=== PATIENT | female | born 1990 | race Caucasian/White ===

== ENCOUNTER 2016-10-11 17:21 | Emergency (ER) | payer BC ==
[2016-10-11] MEDS ORDERED: Ondansetron INJ* 2 MG/ML VIAL IV ONE (17:43)
[2016-10-11] MEDS ORDERED: Ketorolac INJ* 30 MG/ML 1 ML VIAL IV ONE (17:43)
[2016-10-11] MEDS ORDERED: NS 0.9% 1000 ML* 1,000 ML IV ONE (17:43)
--- NOTE | 2016-10-11 18:15 | RAD ---
INDICATION: RIGHT flank pain with radiation to the RIGHT abdomen. Decreased urine output. Headache. History of urolithiasis with previous instrumentation. COMPARISON: September 14, 2015 RIGHT retrograde pyelogram/stent placement. September 14, 2015 RIGHT renal ultrasound. TECHNIQUE: Multidetector CT images were obtained from the lung bases to the ischial tuberosities. Evaluation of the viscera is limited without IV contrast. Multiplanar reformation. REPORT: Unremarkable visualized inferior thorax. Unremarkable liver. Calcified gallstones without additional CT abnormality of the gallbladder. Negative for biliary dilatation. Unremarkable pancreas. Splenule at the hilum of the normal dominant spleen. Negative for CT abnormality of the upper GI, retrocecal appendix, or colon. Negative for ascites, free air, or significant hernias. Normal adrenal glands. A few punctate 1 -- 2 mm calyceal stones are noted at the mid to lower pole of the RIGHT kidney. Negative for RIGHT ureteral stone or hydroureteronephrosis. Mild RIGHT perinephric inflammatory stranding. The LEFT kidney is remarkable for approximate 51 -- 2 mm calyceal stones. Unremarkable LEFT ureter. Negative for LEFT hydroureteronephrosis or perinephric or periureteral inflammatory stranding. Incompletely distended urinary bladder is unremarkable. Tampon in place in the vagina. Unremarkable uterus and adnexal regions. Negative for lymphadenopathy. Unremarkable dominant retroperitoneal vasculature with physiologic distention of the IVC. Negative for suspicious osseous lesions. IMPRESSION: 1. RIGHT perinephric inflammatory stranding without hydronephrosis. Given presence of multiple nonobstructing 1 -- 2 mm bilateral renal calculi this may reflect recent passage of a RIGHT ureteral stone or nonobstructive RIGHT pyelonephritis. 2. Cholelithiasis.
[2016-10-11 18:22] LABS: Hematocrit 41 % (35-47); Hemoglobin 13.5 g/dl (12.0-16.0); Mean Corpuscular HGB Conc 33 g/dl (31-36); Mean Corpuscular Hemoglobin 30 pg (27-31); Mean Corpuscular Volume 90 fL (80-97); Mean Platelet Volume 9 um3 (7.4-10.4); Red Blood Count 4.55 10^6/ul (4.0-5.4); Red Cell Distribution Width 13 % (10.5-15); White Blood Count 12.3 10^3/ul (3.5-10.8)
[2016-10-11 18:39] LABS: Albumin 3.9 g/dL (3.2-5.2); BUN/Creatinine Ratio 12.7 (8-20); C Reactive Protein 110.84 mg/L (< 5.00); Calcium 9.2 mg/dL (8.6-10.3); EGFR Non-African American 99.5 (>60); Globulin 3.5 g/dL (2-4); Potassium 3.9 mmol/L (3.5-5.0); Total Protein 7.4 g/dL (6.4-8.9)
[2016-10-11] MEDS ORDERED: Morphine INJ* 4 MG/ML 1 ML CARPUJECT IV ONE (18:52)
[2016-10-11 19:23] LABS: Urine Bacteria Absent (Absent); Urine Bilirubin Negative (Negative); Urine Glucose Negative (Negative); Urine Nitrite Negative (Negative)
[2016-10-11 20:48] LABS: Urine Bacteria 1+ (Absent); Urine Bilirubin Negative (Negative); Urine Glucose Negative (Negative); Urine Nitrite Negative (Negative)
--- NOTE | 2016-10-11 21:48 | ED ---
Jesse Lucio Rebecca, scribed for Gurwinder Vogel MD on 10/11/16 at 1749 . Abdominal Pain/Female - HPI Summary HPI Summary: Pt is a 25 y/o F who presents to ED c/o abdominal pain. Pain began suddenly 3 days ago and has been constant since onset. Pain is discrete to the R flank with radiation to the R side of the abd. Pain is characterized as sharp and currently ranked 10/10. Sx aggravated and alleviated by nothing. Additionally c/ o nausea, WOLF, decreased urine output. Current sx similar to a prior episode with a Dx of kidney stones. LNMP is right now. - History of Current Complaint Chief Complaint: EDFlankPain Stated Complaint: POSSIBLE KIDNEY STONE Time Seen by Provider: 10/11/16 17:41 Hx Obtained From: Patient Hx Last Menstrual Period: 10/10/14 Onset/Duration: Sudden Onset, Lasting Days - 3 days ago, Still Present Timing: Constant Severity Initially: Moderate Severity Currently: Severe Pain Intensity: 10 Pain Scale Used: 0-10 Numeric Location: Flank - right Radiates: No Radiates to: Other - Right side of the abdomen Character: Sharp Aggravating Factor(s): Nothing Alleviating Factor(s): Nothing Associated Signs and Symptoms: Positive: Urinary Symptoms - Decreased urine output, Nausea, Other: - Headache Simlar Episode/Dx as:: Previous kidney stone Allergies/Adverse Reactions: Allergies Allergy/AdvReac Type Severity Reaction Status Date / Time No Known Allergies Allergy Verified 10/11/16 17:28 PMH/Surg Hx/FS Hx/Imm Hx Endocrine/Hematology History: Denies: Hx Diabetes, Hx Thyroid Disease Cardiovascular History: Denies: Hx Hypertension Respiratory History: Denies: Hx Asthma, Hx Chronic Obstructive Pulmonary Disease (COPD) GI History: Denies: Hx Ulcer History: Reports: Hx Kidney Infection - kidney stone ablation, Hx Kidney Stones - Surgical History Surgery Procedure, Year, and Place: - January 08 Infectious Disease History: No Infectious Disease History: Denies: Hx Clostridium Difficile, Hx Hepatitis, Hx Human Immunodeficiency Virus (HIV), Hx of Known/Suspected MRSA, Hx Shingles, Hx Tuberculosis, Hx Known/ Suspected VRE, Hx Known/Suspected VRSA, History Other Infectious Disease, Traveled Outside the [place] in Last 30 Days - Family History Known Family History: Positive: Diabetes, Other - Diverticulitis - Social History Alcohol Use: None Substance Use Type: Reports: None Smoking Status (MU): Former Smoker Type: Cigarettes Have You Smoked in the Last Year: No Review of Systems Positive: Abdominal Pain - R flank , Nausea Positive: frequency - Decreased urine frequency Positive: Headache All Other Systems Reviewed And Are Negative: Yes Physical Exam - Summary Physical Exam Summary: VITAL SIGNS: Reviewed. GENERAL: Patient is a well developed and nourished female with acute distress secondary to pain. Patient is not in any acute respiratory distress. HEAD AND FACE: Normocephalic and atraumatic. EYES: PERRLA, EOMI x 2, No injected conjunctiva. EARS: Hearing grossly intact. Ear canals and tympanic membranes are WNL. MOUTH: Oropharynx within normal limits. NECK: Supple, trachea is midline, no adenopathy, no JVD. CHEST: Symmetric, no tenderness at palpation LUNGS: Clear to auscultation bilaterally. No wheezing or crackles. CVS: RRR,, S1 and S2 present, no murmurs or gallops appreciated. ABDOMEN: Soft, non-tender. No signs of distention. Positive bowel sounds. No rebound no guarding, and no masses palpated. No abdominal bruit or pulsations. Positive Right CVAT's EXTREMITIES: FROM in all major joints, no edema, no cyanosis or clubbing. NEURO: Alert and oriented x 3. No acute neurological deficits. Speech is normal. SKIN: Dry and warm Triage Information Reviewed: Yes Vital Signs On Initial Exam: Initial Vitals Temp Pulse Resp BP Pulse Ox 99.3 F 133 20 135/79 100 10/11/16 17:26 10/11/16 17:26 10/11/16 17:26 10/11/16 17:26 10/11/16 17:26 Vital Signs Reviewed: Yes Diagnostics - Vital Signs Vital Signs Temp Pulse Resp BP Pulse Ox 10/11/16 17:26 99.3 F 133 20 135/79 100 - Laboratory Lab Results: Lab Results 10/11/16 10/11/16 10/11/16 Range/Units 18:15 18:15 19:08 WBC 12.3 H (3.5-10.8) 10^3/ul RBC 4.55 (4.0-5.4) 10^6/ul Hgb 13.5 (12.0-16.0) g/dl Hct 41 (35-47) % MCV 90 (80-97) fL MCH 30 (27-31) pg MCHC 33 (31-36) g/dl RDW 13 (10.5-15) % Plt Count 250 (150-450) 10^3/ul MPV 9 (7.4-10.4) um3 Neut % (Auto) 80.6 (38-83) % Lymph % (Auto) 10.3 L (25-47) % [place] % (Auto) 8.6 (1-9) % Eos % (Auto) 0.1 (0-6) % Baso % (Auto) 0.4 (0-2) % Absolute Neuts (auto) 9.9 H (1.5-7.7) 10^3/ul Absolute Lymphs (auto) 1.3 (1.0-4.8) 10^3/ul Absolute Monos (auto) 1.1 H (0-0.8) 10^3/ul Absolute Eos (auto) 0 (0-0.6) 10^3/ul Absolute Basos (auto) 0.1 (0-0.2) 10^3/ul Absolute Nucleated RBC 0 10^3/ul Nucleated RBC % 0 Sodium 132 L (133-145) mmol/L Potassium 3.9 (3.5-5.0) mmol/L Chloride 99 L (101-111) mmol/L Carbon Dioxide 25 (22-32) mmol/L Anion Gap 8 (2-11) mmol/L BUN 9 (6-24) mg/dL Creatinine 0.71 (0.51-0.95) mg/dL Est GFR ( Amer) 128.0 (>60) Est GFR (Non-Af Amer) 99.5 (>60) BUN/Creatinine Ratio 12.7 (8-20) Glucose 90 (70-100) mg/dL Calcium 9.2 (8.6-10.3) mg/dL Total Bilirubin 2.00 H (0.2-1.0) mg/dL AST 13 (13-39) U/L ALT 15 (7-52) U/L Alkaline Phosphatase 58 (34-104) U/L C-Reactive Protein 110.84 H (< 5.00) mg/L Total Protein 7.4 (6.4-8.9) g/dL Albumin 3.9 (3.2-5.2) g/dL Globulin 3.5 (2-4) g/dL Albumin/Globulin Ratio 1.1 (1-3) Lipase 13 (11.0-82.0) U/L Urine Color Yellow Urine Appearance Cloudy Urine pH 6.0 (5-9) Ur Specific [place] 1.016 (1.010-1.030) Urine Protein 1+(30 mg/dl) H (Negative) Urine Ketones 2+ H (Negative) Urine Blood 1+ H (Negative) Urine Nitrate Negative (Negative) Urine Bilirubin Negative (Negative) Urine Urobilinogen Negative (Negative) Ur Leukocyte Esterase 2+ H (Negative) Urine WBC (Auto) 3+(>20/hpf) H (Absent) Urine RBC (Auto) 1+(3-5/hpf) H (Absent) Ur Squamous Epith Cells Present H (Absent) Urine Bacteria Absent (Absent) Urine Glucose Negative (Negative) Result Diagrams: 10/11/16 18:15 10/11/16 18:15 Lab Statement: Any lab studies that have been ordered have been reviewed, and results considered in the medical decision making process. - CT Abd/Pel CT CT Interpretation Completed By: Radiologist - 1. RIGHT perinephric inflammatory stranding without hydronephrosis. Given presence of multiple nonobstructing 1 - - 2 mm bilateral renal calculi this may reflect recent passage of a RIGHT ureteral stone or nonobstructive RIGHT pyelonephritis. 2. Cholelithiasis. Abdominal Pain Fem Course/Dx - Course Course Of Treatment: 25 y/o F presents to ED with a CC of R flank pain. Positive nausea without vomiting. No fever or chills. No dysuria or change in frequency. Test results within normal limits besides WBC of 12.3, urinalysis contaminated. Abd/Pel CT shows multiple 1-2 mm kidney stones w/in the kidney, R hydronephrosis possibly secondary to recently passed kidney stone. In the ED course pt was given IV fluids, Toradol and morphine for pain. After these meds, sx resolved. Pt was in the ED for a couple hours and sx did not return. Therefore pt will be d/c with follow up with PCP. Seeing as pt does not have any fever, dysuria and urinalysis is contaminated I will send for urine culture and if needed, the PCP will place pt on Abx. She was also instructed if she develops any fever, chills or more pain she should return to ED for further evaluation. She is hemodynamically stable and AxOx3. - Diagnoses Provider Diagnoses: Kidney stone, Flank pain Discharge - Discharge Plan Condition: Stable Disposition: HOME Patient Education Materials: Kidney Stones (ED) Referrals: [facility] [place] [facility] [place] [facility] [place]] - 3 Days (Follow up with your primary care physician within the next 3 days ) Additional Instructions: Return to ED if any fever, chills or other pain develop. The documentation as recorded by the Jesse chambers Rebecca accurately reflects the service I personally performed and the decisions made by , Gurwinder Vogel MD.
[2016-10-11 22:00] VITALS: BP 119/73
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
== END 2016-10-11 21:59 | disposition home or self-care (01) ==
LOC: ED 17:21
DX: N20.0 Calculus of kidney (principal); R10.84 Generalized abdominal pain
CPT/HCPCS: 36415; 74176; 80053; 81003; 81015; 83690; 85025; 86140; 87077; 87086; 87186; 96374; 96375; 99282; J1885; J2270; J2405

== ENCOUNTER 2016-10-31 11:54 | Emergency (ER) | payer BC ==
--- NOTE | 2016-10-31 15:33 | RAD ---
INDICATION: Shortness of breath COMPARISON: None TECHNIQUE: PA and lateral views of the chest were obtained. FINDINGS: The heart and mediastinum are normal in size and contour. The lungs are grossly clear. There is no evidence of large pleural effusion. Visualized bones are normal for the patient's age. There is no radiographic evidence of free air beneath the diaphragm IMPRESSION: No radiographic evidence of acute cardiopulmonary disease.
[2016-10-31] MEDS ORDERED: Ketorolac INJ* 30 MG/ML 1 ML VIAL IV ONE (16:32)
[2016-10-31] MEDS ORDERED: LORazepam INJ* 2 MG/ML 1 ML VIAL IV PUSH ONE (16:40)
[2016-10-31] MEDS ORDERED: LORazepam INJ* 2 MG/ML 1 ML VIAL ONE (16:42)
[2016-10-31 16:56] LABS: Hematocrit 36 % (35-47); Hemoglobin 12.2 g/dl (12.0-16.0); Mean Corpuscular HGB Conc 34 g/dl (31-36); Mean Corpuscular Hemoglobin 30 pg (27-31); Mean Corpuscular Volume 89 fL (80-97); Mean Platelet Volume 8 um3 (7.4-10.4); Red Blood Count 4.09 10^6/ul (4.0-5.4); Red Cell Distribution Width 14 % (10.5-15); White Blood Count 7.9 10^3/ul (3.5-10.8)
[2016-10-31 17:03] LABS: Urine Bacteria Absent (Absent); Urine Bilirubin Negative (Negative); Urine Glucose Negative (Negative); Urine Nitrite Negative (Negative)
--- NOTE | 2016-10-31 17:28 | RAD ---
INDICATION: Left rib pain COMPARISON: Chest x-ray October 31, 2016 TECHNIQUE: Multiple views of the ribs were obtained. FINDINGS: Bones: There is no evidence of acute rib fracture. LUNGS: The lungs are clear. There is no pneumothorax. Pleural spaces: There is no evidence of hemothorax. Other: None IMPRESSION: NEGATIVE EXAMINATION.
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
[2016-10-31 18:08] LABS: ALT 36 U/L (7-52); AST 27 U/L (13-39); Albumin 4.1 g/dL (3.2-5.2); Alkaline Phosphatase 51 U/L (34-104); Anion Gap 6 mmol/L (2-11); Blood Urea Nitrogen 9 mg/dL (6-24); C Reactive Protein 1.91 mg/L (< 5.00); CO2 Carbon Dioxide 27 mmol/L (22-32); Calcium 9.5 mg/dL (8.6-10.3); Chloride 106 mmol/L (101-111); EGFR African American 131.3 (>60); EGFR Non-African American 102.1 (>60); Glucose 86 mg/dL (70-100); Lipase 84 U/L (11.0-82.0); Potassium 3.7 mmol/L (3.5-5.0); Sodium 139 mmol/L (133-145); Total Protein 7.1 g/dL (6.4-8.9)
[2016-10-31 19:29] VITALS: BP 118/76
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
== END 2016-10-31 19:25 | disposition home or self-care (01) ==
LOC: ED 11:54
DX: S30.1XXA Contusion of abdominal wall, initial encounter (principal); Y04.2XXA Assault by strike against or bumped into by another person, initial encounter; Y92.9 Unspecified place or not applicable; Z87.891 Personal history of nicotine dependence; Z87.442 Personal history of urinary calculi
CPT/HCPCS: 36415; 71020; 74176; 80053; 81003; 81015; 83690; 83735; 84702; 85025; 85610; 85730; 86140; 87086; 93005; 99284; J1885; J2060

== ENCOUNTER 2016-11-24 15:35 | Emergency (ER) | payer BC | END 2016-11-24 17:12 | disposition left against medical advice (07) | LOC: UCEAST 15:35 | DX: J00 Acute nasopharyngitis [common cold] (principal); Z53.21 Procedure and treatment not carried out due to patient leaving prior to being seen by health care provider ==

== ENCOUNTER 2017-10-12 04:02 | Emergency (ER) | payer BC ==
[2017-10-12] MEDS ORDERED: Metoclopramide IV* 5 MG/ML 2 ML VIAL IV ONE (04:19)
[2017-10-12] MEDS ORDERED: Ketorolac INJ* 30 MG/ML 1 ML VIAL IV ONE (04:19)
[2017-10-12] MEDS ORDERED: HYDROmorphone INJ* 2 MG/ML CARPUJECT SYRINGE IV SLOW PU ONE ×2 (04:19→06:29)
[2017-10-12] MEDS ORDERED: NS 0.9% 1000 ML* 1,000 ML IV ONE ×2 (04:22→05:53)
[2017-10-12 04:57] LABS: ABS Basophils 0 10^3/ul (0-0.2); ABS Eosinophils 0.2 10^3/ul (0-0.6); ABS Lymphocytes 2.4 10^3/ul (1.0-4.8); ABS Monocytes 0.7 10^3/ul (0-0.8); ABS Neutrophils 5.5 10^3/ul (1.5-7.7); ABS Nucleated RBC 0 10^3/ul; Hematocrit 44 % (35-47); Hemoglobin 14.7 g/dl (12.0-16.0); Lymphocyte % 27.2 % (25-47); Mean Corpuscular HGB Conc 34 g/dl (31-36); Mean Corpuscular Hemoglobin 31 pg (27-31); Mean Corpuscular Volume 91 fL (80-97); Mean Platelet Volume 9 um3 (7.4-10.4); Nucleated Red Blood Cells % 0.1; Platelet Count 313 10^3/ul (150-450); Red Blood Count 4.77 10^6/ul (4.0-5.4); Red Cell Distribution Width 14 % (10.5-15); White Blood Count 8.9 10^3/ul (3.5-10.8)
[2017-10-12 05:11] LABS: EGFR Non-African American 105.6 (>60)
[2017-10-12 06:45] LABS: Urine Color Red
[2017-10-12 06:46] LABS: Urine Appearance Turbid
--- NOTE | 2017-10-12 07:02 | ED ---
Regis Lucio Abhishek, scribed for Queenie Douglass MD on 10/12/17 at 0425 . Abdominal Pain/Female - HPI Summary HPI Summary: This patient is a 26 year old F presenting to [facility] with a chief complaint of LLQ abd pain since 1 hour ago. The pain is reported to be radiating to the left kidney (back pain). The patient rates the pain 8/10 in severity. Symptoms aggravated by nothing. Symptoms alleviated by nothing. Patient reports vomiting. Pertinent PMHx includes kidney infection and renal calculi (2 times). - History of Current Complaint Chief Complaint: EDAbdPain Stated Complaint: ABD PAIN/N/V Time Seen by Provider: 10/12/17 04:05 Hx Obtained From: Patient Onset/Duration: Sudden Onset, Lasting Hours - one hour, Still Present Timing: Hours - one hour Severity Initially: Severe Severity Currently: Severe Pain Intensity: 8 Pain Scale Used: 0-10 Numeric Location: Discrete At: LLQ Radiates: Yes Radiates to: Back - left kidney Aggravating Factor(s): Nothing Alleviating Factor(s): Nothing Associated Signs and Symptoms: Positive: Vomiting Allergies/Adverse Reactions: Allergies Allergy/AdvReac Type Severity Reaction Status Date / Time No Known Allergies Allergy Verified 10/31/16 11:57 PMH/Surg Hx/FS Hx/Imm Hx Endocrine/Hematology History: Denies: Hx Diabetes, Hx Thyroid Disease Cardiovascular History: Denies: Hx Hypertension Respiratory History: Denies: Hx Asthma, Hx Chronic Obstructive Pulmonary Disease (COPD) GI History: Denies: Hx Ulcer History: Reports: Hx Kidney Infection - kidney stone ablation, Hx Kidney Stones - Surgical History Surgery Procedure, Year, and Place: - January 08 Infectious Disease History: No Infectious Disease History: Denies: Hx Clostridium Difficile, Hx Hepatitis, Hx Human Immunodeficiency Virus (HIV), Hx of Known/Suspected MRSA, Hx Shingles, Hx Tuberculosis, Hx Known/ Suspected VRE, Hx Known/Suspected VRSA, History Other Infectious Disease, Traveled Outside the [place] in Last 30 Days - Family History Known Family History: Positive: Diabetes, Other - Diverticulitis - Social History Alcohol Use: None Substance Use Type: Reports: None Smoking Status (MU): Former Smoker Type: Cigarettes Have You Smoked in the Last Year: No Review of Systems Constitutional: Negative Eyes: Negative ENT: Negative Cardiovascular: Negative Respiratory: Negative Positive: Abdominal Pain - LLQ, Vomiting Genitourinary: Negative Musculoskeletal: Other - back ("left kidney") pain Skin: Negative Neurological: Negative Psychological: Normal All Other Systems Reviewed And Are Negative: Yes Physical Exam - Summary Physical Exam Summary: VITAL SIGNS: Reviewed. GENERAL: ~Patient is a well-developed and nourished (MALE OR FEMALE) who is lying comfortable in the stretcher. Patient is not in any acute respiratory distress. HEAD AND FACE: No signs of trauma. No ecchymosis, hematomas or skull depressions. No sinus tenderness. EYES: PERRLA, EOMI x 2, No injected conjunctiva, no nystagmus. EARS: Hearing grossly intact. Ear canals and tympanic membranes are within normal limits. MOUTH: Oropharynx within normal limits. NECK: Supple, trachea is midline, no adenopathy, no JVD, no carotid bruit, no c- spine tenderness, neck with full ROM. CHEST: Symmetric, no tenderness at palpation LUNGS: Clear to auscultation bilaterally. No wheezing or crackles. CVS: Regular rate and rhythm, S1 and S2 present, no murmurs or gallops appreciated. ABDOMEN: Left CVA tenderness, EXTREMITIES: Left pelvic tenderness NEURO: Alert and oriented x 3. No acute neurological deficits. Speech is normal and follows commands. SKIN: Dry and warm Triage Information Reviewed: Yes Vital Signs On Initial Exam: Initial Vitals Temp Pulse Resp BP Pulse Ox 97.5 F 77 20 154/93 100 10/12/17 04:05 10/12/17 04:05 10/12/17 04:05 10/12/17 04:05 10/12/17 04:05 Vital Signs Reviewed: Yes Diagnostics - Vital Signs Vital Signs Temp Pulse Resp BP Pulse Ox 10/12/17 04:05 97.5 F 77 20 154/93 100 - Laboratory Result Diagrams: 10/12/17 04:37 10/12/17 04:37 Lab Statement: Any lab studies that have been ordered have been reviewed, and results considered in the medical decision making process. - CT CT A/P CT Interpretation Completed By: Radiologist - CT A/P reveals obstructive uropathy, nephrolithiasis, and choleolithiasis as per radiologist. ED Physician has reviewed this report. Abdominal Pain Fem Course/Dx - Course Course Of Treatment: The pt presented with abd pain discrete to the LLQ and around the "left kidney." Pt also has pertinent PMHx of kidney infection and renal calculi (multiple occurances). The pt will be discharged home. Dx will be renal colic and left urethral stone. We recommended follow up with urologist. - Diagnoses Provider Diagnoses: Left ureteral stone, Renal colic Discharge - Discharge Plan Condition: Stable Disposition: HOME Prescriptions: oxyCODONE/Acetamin 5/325 MG* [Percocet 5/325 TAB*] 1 tab PO Q6H PRN #20 tab MDD 4 PRN Reason: Pain - Moderate To Severe Tamsulosin CAP* [Flomax CAP*] 0.4 mg PO BEDTIME #7 cap Referrals: No Primary Care Phys,NOPCP [Primary Care Provider] - The documentation as recorded by the Regis chambers Abhishek accurately reflects the service I personally performed and the decisions made by Rafat gould Abdul, MD.
[2017-10-12 07:33] VITALS: BP 127/88
--- NOTE | 2017-10-12 08:01 | RAD ---
INDICATION: Left-sided renal colic. COMPARISON: Comparison is made with a prior CT of the abdomen and pelvis from October 29, 2016. TECHNIQUE: A CT scan of the abdomen and pelvis was performed without intravenous or oral contrast. Contiguous axial sections were obtained from the lung bases through the symphysis pubis. Images were reconstructed in the coronal and sagittal planes. FINDINGS: The lung bases are clear. No pleural effusion is present. The liver and spleen are normal in size. The liver is decreased in attenuation consistent with fatty infiltration. There are gallstones present. The gallbladder is not distended. No gallbladder thickening is seen. The pancreas appears to be within normal limits. There is an accessory spleen present. The adrenal glands appear to be within normal limits. There are multiple small bilateral renal calculi measuring between 1 and 2 mm. There is a 3 x 4 mm calculus at the right ureteropelvic junction causing mild hydronephrosis. No bladder calculi are seen. The aorta is normal in caliber without significant calcific plaque. No significant enlarged retroperitoneal lymph nodes are seen. The stomach, small and large bowel appear nondistended. The appendix is within normal limits. There is mild descending and sigmoid diverticulosis without evidence for diverticulitis. The uterus is retroverted and normal in size. There is a small 1.5 cm right ovarian cyst present. No free intraperitoneal air or fluid is seen. No significant focal osseous abnormality is seen. IMPRESSION: 1. MULTIPLE BILATERAL RENAL CALCULI. IN ADDITION THERE IS A 4 MM CALCULUS AT THE LEFT URETEROPELVIC JUNCTION CAUSING MILD HYDRONEPHROSIS. 2. CHOLELITHIASIS. 3. HEPATIC STEATOSIS.
== END 2017-10-12 07:34 | disposition home or self-care (01) ==
LOC: ED 04:02
DX: N20.1 Calculus of ureter (principal); N23 Unspecified renal colic; R10.32 Left lower quadrant pain; R11.10 Vomiting, unspecified; Z87.891 Personal history of nicotine dependence
CPT/HCPCS: 36415; 74176; 80053; 81003; 84702; 85025; 86140; 96374; 96375; 99284; J1170; J1885; J2765

== ENCOUNTER 2017-10-21 18:46 | Emergency (ER) | payer BC ==
[2017-10-21 18:52] VITALS: BP 138/98
[2017-10-21] MEDS ORDERED: HYDROmorphone INJ* 1 MG/ML CARPUJECT SYRINGE IV SLOW PU ONE (20:28)
[2017-10-21] MEDS ORDERED: Metoclopramide IV* 5 MG/ML 2 ML VIAL IV SLOW PU ONE (20:29)
[2017-10-21] MEDS ORDERED: Ketorolac INJ* 30 MG/ML 1 ML VIAL IV PUSH ONE (20:29)
[2017-10-21] MEDS: NS 0.9% 1000 ML* 2,000 ML IV ONE (20:44)
[2017-10-21 21:50] LABS: ABS Basophils 0 10^3/ul (0-0.2); ABS Eosinophils 0.1 10^3/ul (0-0.6); ABS Lymphocytes 1.4 10^3/ul (1.0-4.8); ABS Nucleated RBC 0 10^3/ul; Eosinophil % 0.9 % (0-6); Hematocrit 40 % (35-47); Hemoglobin 13.2 g/dl (12.0-16.0); Lymphocyte % 11.3 % (25-47); Mean Corpuscular HGB Conc 33 g/dl (31-36); Mean Corpuscular Hemoglobin 30 pg (27-31); Mean Corpuscular Volume 91 fL (80-97); Mean Platelet Volume 9 um3 (7.4-10.4); Nucleated Red Blood Cells % 0; Platelet Count 270 10^3/ul (150-450); Red Blood Count 4.36 10^6/ul (4.0-5.4); Red Cell Distribution Width 14 % (10.5-15); White Blood Count 12.6 10^3/ul (3.5-10.8)
[2017-10-21 22:09] LABS: EGFR Non-African American 86.7 (>60); Urine Appearance Cloudy; Urine Blood 3+ (Negative); Urine Color Yellow; Urine Ketones Trace (Negative); Urine Protein Negative (Negative); Urine Specific Gravity 1.016 (1.010-1.030); Urine Urobilinogen Negative (Negative)
[2017-10-21] MEDS ORDERED: Levofloxacin TAB* 500 MG PO ONE (22:38)
--- NOTE | 2017-10-22 06:02 | ED ---
Rigo Lucio Nilda, scribed for Queenie Douglass MD on 10/21/17 at 203 . GI/ HPI - HPI Summary HPI Summary: This patient is a 27 year old F presenting to [facility] with a chief complaint of severe intermittent left flank pain since 183. The patient rates the pain 7/10 in severity. Symptoms aggravated and alleviated by nothing including Percocet taken [facility]. Patient denies vomiting. Two days ago pt was Dx at [facility] with 4mm kidney stone. Pt states she finished Flomax and still experiences pain. She is going to follow up with her urologist. PMHx renal calculi. - History of Current Complaint Chief Complaint: EDFlankPain Time Seen by Provider: 10/21/17 20:19 Stated Complaint: LOWER FLANK PAIN Hx Obtained From: Patient Hx Last Menstrual Period: 10/10/14 Onset/Duration: Started Hours Ago, Still Present Timing: Intermittent Severity: Severe Current Severity: Severe Pain Intensity: 7 Location of Pain: Flank Associated Signs and Symptoms: Positive: Other: - denies vomitting Aggravating Factor(s): Nothing Alleviating Factor(s): Nothing - Allergy/Home Medications Allergies/Adverse Reactions: Allergies Allergy/AdvReac Type Severity Reaction Status Date / Time No Known Allergies Allergy Verified 10/31/16 11:57 PMH/Surg Hx/FS Hx/Imm Hx Endocrine/Hematology History: Denies: Hx Diabetes, Hx Thyroid Disease Cardiovascular History: Denies: Hx Hypertension Respiratory History: Denies: Hx Asthma, Hx Chronic Obstructive Pulmonary Disease (COPD) GI History: Denies: Hx Ulcer History: Reports: Hx Kidney Infection - kidney stone ablation, Hx Kidney Stones - Surgical History Surgery Procedure, Year, and Place: - January 08 Infectious Disease History: No Infectious Disease History: Denies: Hx Clostridium Difficile, Hx Hepatitis, Hx Human Immunodeficiency Virus (HIV), Hx of Known/Suspected MRSA, Hx Shingles, Hx Tuberculosis, Hx Known/ Suspected VRE, Hx Known/Suspected VRSA, History Other Infectious Disease, Traveled Outside the [place] in Last 30 Days - Family History Known Family History: Positive: Diabetes, Other - Diverticulitis - Social History Occupation: Employed Full-time Alcohol Use: None Substance Use Type: Reports: None Smoking Status (MU): Former Smoker Type: Cigarettes Have You Smoked in the Last Year: No Review of Systems Negative: Vomiting Positive: flank pain - left All Other Systems Reviewed And Are Negative: Yes Physical Exam - Summary Physical Exam Summary: VITAL SIGNS: Reviewed. GENERAL: Patient is a well-developed and nourished female who is in pain distress. Patient is not in any acute respiratory distress. HEAD AND FACE: No signs of trauma. No ecchymosis, hematomas or skull depressions. No sinus tenderness. EYES: PERRLA, EOMI x 2, No injected conjunctiva, no nystagmus. EARS: Hearing grossly intact. Ear canals and tympanic membranes are within normal limits. MOUTH: Oropharynx within normal limits. NECK: Supple, trachea is midline, no adenopathy, no JVD, no carotid bruit, no c- spine tenderness, neck with full ROM. CHEST: Symmetric, no tenderness at palpation LUNGS: Clear to auscultation bilaterally. No wheezing or crackles. CVS: Regular rate and rhythm, S1 and S2 present, no murmurs or gallops appreciated. ABDOMEN: Soft, LLQ tender. No signs of distention. No rebound no guarding, and no masses palpated. Bowel sounds are normal. BACK: Left CVA tenderness EXTREMITIES: FROM in all major joints, no edema, no cyanosis or clubbing. NEURO: Alert and oriented x 3. No acute neurological deficits. Speech is normal and follows commands. SKIN: Dry and warm Triage Information Reviewed: Yes Vital Signs On Initial Exam: Initial Vitals Temp Pulse Resp BP Pulse Ox 97.9 F 87 20 138/98 97 10/21/17 18:49 10/21/17 18:49 10/21/17 18:49 10/21/17 18:49 10/21/17 18:49 Vital Signs Reviewed: Yes Diagnostics - Vital Signs Vital Signs Temp Pulse Resp BP Pulse Ox 10/21/17 18:49 97.9 F 87 20 138/98 97 - Laboratory Result Diagrams: 10/21/17 21:40 10/21/17 21:40 Lab Statement: Any lab studies that have been ordered have been reviewed, and results considered in the medical decision making process. GIGU Course/Dx - Course Assessment/Plan: Pt is a 27 y/o F presenting to [facility] c/o of left flank pain. Previously diagnosed with 3-4 mm stone in left ureter pelvic junction and has been having CV pain since 1830 today. PMHx renal calculi. Pt taking Percocet at home which has not been helping pain. Pt given Dilaudid in ED with relief. Pt will be D/C with Dilaudid and follow up with Urology tomorrow. Pt UA may be showing possible UTI. Pt will be given Levaquin. Dx Renal Colic. - Diagnoses Provider Diagnoses: Renal colic Discharge - Discharge Plan Condition: Stable Disposition: HOME Prescriptions: HYDROmorphone TAB* [Dilaudid TAB*] 4 mg PO Q6H PRN #20 tab MDD 8 PRN Reason: Pain Levofloxacin TAB* [Levaquin TAB*] 500 mg PO DAILY #7 tab Patient Education Materials: Renal Colic (ED) Referrals: Jose Baugh MD [Medical Doctor] - 1 Day Additional Instructions: RETURN TO THE EMERGENCY DEPARTMENT FOR CHANGING OR WORSENING SYMPTOMS. The documentation as recorded by the Rigo chambers Nilda accurately reflects the service I personally performed and the decisions made by , Qeuenie Douglass MD.
== END 2017-10-21 23:01 | disposition home or self-care (01) ==
LOC: ED 18:46
DX: N23 Unspecified renal colic (principal); N20.0 Calculus of kidney; R10.84 Generalized abdominal pain; Z87.891 Personal history of nicotine dependence
CPT/HCPCS: 36415; 80053; 81003; 81015; 84702; 85025; 86140; 87086; 96374; 96375; 99283; J1170; J1885; J2765

== ENCOUNTER 2017-11-03 14:16 | Emergency (ER) | payer BC ==
[2017-11-03] MEDS ORDERED: Ketorolac INJ* 30 MG/ML 1 ML VIAL IV PUSH ONE ×2 (14:34→19:52)
[2017-11-03] MEDS ORDERED: Ondansetron INJ* 2 MG/ML VIAL IV ONE (14:34)
[2017-11-03] MEDS ORDERED: Morphine INJ* 4 MG/ML 1 ML CARPUJECT IV ONE ×3 (14:34→16:00)
[2017-11-03] MEDS ORDERED: NS 0.9% 1000 ML* 1,000 ML IV ONE (14:34)
[2017-11-03] MEDS ORDERED: Ondansetron INJ* 2 MG/ML VIAL ONE (14:36)
[2017-11-03] MEDS ORDERED: Ketorolac INJ* 30 MG/ML 1 ML VIAL ONE (14:36)
[2017-11-03 14:55] LABS: ABS Basophils 0 10^3/ul (0-0.2); ABS Eosinophils 0.1 10^3/ul (0-0.6); ABS Lymphocytes 1.5 10^3/ul (1.0-4.8); ABS Monocytes 0.6 10^3/ul (0-0.8); ABS Neutrophils 6.9 10^3/ul (1.5-7.7); ABS Nucleated RBC 0 10^3/ul; Hematocrit 41 % (35-47); Hemoglobin 13.6 g/dl (12.0-16.0); Lymphocyte % 16.1 % (25-47); Mean Corpuscular HGB Conc 34 g/dl (31-36); Mean Corpuscular Hemoglobin 31 pg (27-31); Mean Corpuscular Volume 91 fL (80-97); Mean Platelet Volume 9 um3 (7.4-10.4); Nucleated Red Blood Cells % 0; Platelet Count 302 10^3/ul (150-450); Red Blood Count 4.47 10^6/ul (4.0-5.4); Red Cell Distribution Width 13 % (10.5-15); White Blood Count 9.1 10^3/ul (3.5-10.8)
--- NOTE | 2017-11-03 15:00 | RAD ---
INDICATION: Pelvic pain. History of nephrolithiasis. COMPARISON: CT October 12, 2017 TECHNIQUE: A single view of the abdomen is submitted. FINDINGS: Bones: There are no acute bony findings. Soft tissues: The soft tissues appear normal. The psoas margins are sharp. Bowel gas pattern: Normal Calcifications: There are no abnormal calcifications. Other: None IMPRESSION: NO PLAIN RADIOGRAPHIC EVIDENCE OF RENAL CALCULI
[2017-11-03 15:09] LABS: EGFR Non-African American 84.2 (>60)
--- NOTE | 2017-11-03 15:42 | RAD ---
INDICATION: Left flank pain. COMPARISON: CT October 12, 2017 TECHNIQUE: Longitudinal and transverse scans of the kidneys were obtained. FINDINGS: Left kidney: The left kidney measures 12.8 x 6.5 x 6.4 cm. There is mild left-sided hydronephrosis. There is a probable midpole calculus measuring 3 to 4 mm. This is documented on earlier CT imaging. The left ureter cannot be traced. At the bladder the left ureteral jet is not documented. IMPRESSION: MILD LEFT-SIDED HYDRONEPHROSIS. LEFT-SIDED NEPHROLITHIASIS. NONVISUALIZATION LEFT URETERAL JET.
--- NOTE | 2017-11-03 16:46 | RAD ---
INDICATION: Left flank pain with hydronephrosis and absent left ureteral jet. Recent CT shows bilateral nephrolithiasis COMPARISON: Renal sonogram same date; CT October 12, 2017 TECHNIQUE: Noncontrast axial source images were acquired from the level hemidiaphragms to the symphysis pubis as part of CT imaging for renal stone. Lung bases: The lung bases are clear. Liver: The liver is enlarged with findings of hepatic steatosis. Noncontrast imaging shows no evidence of a hepatic mass or ductal dilatation. Gallbladder: Cholelithiasis, unchanged. Spleen: The spleen is normal in size. The noncontrast CT appearance is normal. There is a small splenule Pancreas: Noncontrast imaging shows no pancreatic mass or ductal dilitation. Adrenal glands: No masses are identified. Kidneys/Bladder: There is again evidence of bilateral nephrolithiasis. There is moderate left-sided obstruction consistent with the concurrent ultrasound with left-sided hydronephrosis and hydroureter with a 5 mm calculus at the left UVJ. Adenopathy: There is no evidence of intraperitoneal or retroperitoneal adenopathy. Evaluation is limited without oral contrast. Fluid collections: There are no free or localized fluid collections. Vessels: The aorta and iliac vessels are normal in caliber. There are no significant atherosclerotic changes. The IVC appears normal Pelvic organs: The uterus and adnexa appear normal GI tract: Evaluation of the bowel is limited without oral contrast. The stomach, small bowel, and lower GI tract appear grossly normal. There are no obstructive findings. The appendix is visualized and appears normal. Soft tissues: No soft tissue abnormalities of the extraperitoneal abdomen or pelvis are identified. Osseous structures: There are no acute osseous findings. IMPRESSION: 1. Hepatomegaly with hepatic steatosis. 2. Cholelithiasis, unchanged. 3. Bilateral nephrolithiasis. There is a 5 mm axis at the left UVJ producing moderate obstructive findings.
[2017-11-03 18:09] LABS: Urine Appearance Cloudy; Urine Blood 3+ (Negative); Urine Color Yellow; Urine Ketones Negative (Negative); Urine Protein Negative (Negative); Urine Specific Gravity 1.008 (1.010-1.030); Urine Urobilinogen Negative (Negative)
[2017-11-03 18:58] LABS: Urine Appearance Clear; Urine Blood 3+ (Negative); Urine Color Straw; Urine Ketones Trace (Negative); Urine Protein Negative (Negative); Urine Urobilinogen Negative (Negative)
[2017-11-03] MEDS ORDERED: oxyCODONE/Acetamin 5/325 MG* TAB PO ONE ×2 (19:52→21:12)
[2017-11-03] MEDS ORDERED: Tamsulosin CAP* 0.4 MG PO ONE (19:52)
[2017-11-03 20:31] VITALS: BP 136/82
[2017-11-03] MEDS ORDERED: I buprofen 600 MG #6 TAB PREPK 600 MG TAB PO ONE (20:37)
[2017-11-03] MEDS ORDERED: C ephalexin 500MG #6 TAB PREPK 500 MG CAP PO ONE (20:37)
--- NOTE | 2017-11-10 14:19 | ED ---
[facility] Luc[facility] Stephanie, scribed for Umer Mike MD on 11/03/17 at 1731 . Progress - Consult/PCP Time Called: 18:24 - Requested a straight catheter for pt. Consult/PCP: Dr. Baugh Re-Evaluation - Re-Evaluation First Eval Re-Evaluation Time: 17:36 Change: Improved - The pt is able to urinate bloody urine with debris. Her back pain is gone. The pt reports that she still has urethral pain. Second Eval Re-Evaluation Time: 20:38 Change: Improved - Patient's painis resolved. She wishes to be discharged. Course/Dx - Course Course Of Treatment: Pt has minimal hydro nephrosis. She is able to urinate. Pain is controlled. No sign of infection. The pt will be discharged home. Follow up with Dr. Baugh in 2-3 days. - Diagnoses Provider Diagnoses: Ureteral stone The documentation as recorded by the [facility] accurately reflects the service I personally performed and the decisions made by , Umer Mike MD.
--- NOTE | 2017-11-10 14:19 | ED ---
Deepthi Lucio Emily, scribed for Umer Mike MD on 11/03/17 at 1434 . Abdominal Pain/Female - HPI Summary HPI Summary: This patient is a 27 year old F presenting to [facility] with a chief complaint of pain in the urethra that began 2 weeks ago that worsened yesterday. The patient rates the pain 10/10 in severity. Symptoms aggravated by nothing. Symptoms alleviated by nothing. Patient reports hematuria, diaphoresis, feeling like she constantly needs to pee, inability to urinate since 829, dark urine, and L sided back pain. Pt reports trying to make an appointment with Dr. Baugh, and was unable to make an appointment. Pt reports a history of kidney stones. - History of Current Complaint Chief Complaint: EDAbdPain Stated Complaint: ABD PAIN/BLOODY URINE Hx Obtained From: Patient Hx Last Menstrual Period: 10/10/14 Onset/Duration: Sudden Onset, Lasting Weeks, Worse Since - Yesterday Timing: Weeks Severity Initially: Severe Severity Currently: Severe Pain Intensity: 10 Pain Scale Used: 0-10 Numeric Location: Suprapubic Radiates: Yes Radiates to: Back Aggravating Factor(s): Nothing Alleviating Factor(s): Nothing Associated Signs and Symptoms: Positive: Other: - Positive hematuria, diaphoresis, feeling like she constantly needs to pee, inability to pee since 829, dark urine, and L sided back pain Allergies/Adverse Reactions: Allergies Allergy/AdvReac Type Severity Reaction Status Date / Time No Known Allergies Allergy Verified 11/08/17 20:23 PMH/Surg Hx/FS Hx/Imm Hx Previously Healthy: No Endocrine/Hematology History: Denies: Hx Diabetes, Hx Thyroid Disease Cardiovascular History: Denies: Hx Hypertension Respiratory History: Denies: Hx Asthma, Hx Chronic Obstructive Pulmonary Disease (COPD) GI History: Denies: Hx Ulcer History: Reports: Hx Kidney Infection - kidney stone ablation, Hx Kidney Stones - Surgical History Surgery Procedure, Year, and Place: - January 08 Infectious Disease History: No Infectious Disease History: Denies: Hx Clostridium Difficile, Hx Hepatitis, Hx Human Immunodeficiency Virus (HIV), Hx of Known/Suspected MRSA, Hx Shingles, Hx Tuberculosis, Hx Known/ Suspected VRE, Hx Known/Suspected VRSA, History Other Infectious Disease, Traveled Outside the [place] in Last 30 Days - Family History Known Family History: Positive: Diabetes, Other - Diverticulitis - Social History Occupation: Employed Full-time Lives: With Family Alcohol Use: None Substance Use Type: Reports: None Smoking Status (MU): Former Smoker Type: Cigarettes Have You Smoked in the Last Year: No Review of Systems Positive: Skin Diaphoresis. Negative: Fever, Chills Negative: Erythema Negative: Sore Throat Negative: Chest Pain Negative: Shortness Of Breath, Cough Positive: Abdominal Pain. Negative: Vomiting, Nausea Positive: other - Positive dark urine, "feelings of increased frequency", and inability to urinate. Positive: Other - Positive L sided back pain. Negative: Edema Negative: Rash Neurological: Other - Negative dizziness All Other Systems Reviewed And Are Negative: Yes Physical Exam - Summary Physical Exam Summary: Constitutional: Well-developed, Well-nourished, Alert. Appears to be in pain/ distress Skin: Warm, Dry HENT: Normocephalic; Atraumatic Eyes: Conjunctiva normal Neck: Musculoskeletal ROM normal neck. (-) JVD, (-) Stridor, (-) Tracheal deviation Cardio: Rhythm regular, rate normal, Heart sounds normal; Intact distal pulses; The pedal pulses are 2+ and symmetric. Radial pulses are 2+ and symmetric. (-) Murmur Pulmonary/Chest wall: Effort normal. (-) Respiratory distress, (-) Wheezes, (-) Rales Abd: Soft, (-) Distension, (-) Guarding, (-) Rebound, mild CVA tenderness Pelvic Exam: Female RN present; external genitalia present Musculoskeletal: (-) Edema Lymph: (-) Cervical adenopathy Neuro: Alert, Oriented x3 Psych: Mood and affect Normal Triage Information Reviewed: Yes Vital Signs On Initial Exam: Initial Vitals Temp Pulse Resp BP Pulse Ox 97.2 F 85 24 153/78 99 11/03/17 14:18 11/03/17 14:18 11/03/17 14:18 11/03/17 14:18 11/03/17 14:18 Vital Signs Reviewed: Yes Diagnostics - Vital Signs Vital Signs Temp Pulse Resp BP Pulse Ox 11/03/17 14:18 97.2 F 85 24 153/78 99 - Laboratory Lab Results: Lab Results 11/03/17 11/03/17 11/03/17 Range/Units 14:42 14:42 14:42 WBC 9.1 (3.5-10.8) 10^3/ul RBC 4.47 (4.0-5.4) 10^6/ul Hgb 13.6 (12.0-16.0) g/dl Hct 41 (35-47) % MCV 91 (80-97) fL MCH 31 (27-31) pg MCHC 34 (31-36) g/dl RDW 13 (10.5-15) % Plt Count 302 (150-450) 10^3/ul MPV 9 (7.4-10.4) um3 Neut % (Auto) 76.5 (38-83) % Lymph % (Auto) 16.1 L (25-47) % [place] % (Auto) 6.1 (1-9) % Eos % (Auto) 1.0 (0-6) % Baso % (Auto) 0.3 (0-2) % Absolute Neuts (auto) 6.9 (1.5-7.7) 10^3/ul Absolute Lymphs (auto) 1.5 (1.0-4.8) 10^3/ul Absolute Monos (auto) 0.6 (0-0.8) 10^3/ul Absolute Eos (auto) 0.1 (0-0.6) 10^3/ul Absolute Basos (auto) 0 (0-0.2) 10^3/ul Absolute Nucleated RBC 0 10^3/ul Nucleated RBC % 0 Sodium 136 (133-145) mmol/L Potassium 4.1 (3.5-5.0) mmol/L Chloride 104 (101-111) mmol/L Carbon Dioxide 25 (22-32) mmol/L Anion Gap 7 (2-11) mmol/L BUN 10 (6-24) mg/dL Creatinine 0.81 (0.51-0.95) mg/dL Est GFR ( Amer) 108.3 (>60) Est GFR (Non-Af Amer) 84.2 (>60) BUN/Creatinine Ratio 12.3 (8-20) Glucose 100 (70-100) mg/dL Lactic Acid 0.8 (0.5-2.0) mmol/L Calcium 9.6 (8.6-10.3) mg/dL Total Bilirubin 1.00 (0.2-1.0) mg/dL AST 24 (13-39) U/L ALT 42 (7-52) U/L Alkaline Phosphatase 52 (34-104) U/L C-Reactive Protein 3.40 (< 5.00) mg/L Total Protein 7.4 (6.4-8.9) g/dL Albumin 4.3 (3.2-5.2) g/dL Globulin 3.1 (2-4) g/dL Albumin/Globulin Ratio 1.4 (1-3) Lipase 19 (11.0-82.0) U/L Urine Color Urine Appearance Urine pH (5-9) Ur Specific [place] (1.010-1.030) Urine Protein (Negative) Urine Ketones (Negative) Urine Blood (Negative) Urine Nitrate (Negative) Urine Bilirubin (Negative) Urine Urobilinogen (Negative) Ur Leukocyte Esterase (Negative) Urine WBC (Auto) (Absent) Urine RBC (Auto) (Absent) Ur Squamous Epith Cells (Absent) Urine Bacteria (Absent) Urine Glucose (Negative) 11/03/17 11/03/17 Range/Units 17:50 18:47 WBC (3.5-10.8) 10^3/ul RBC (4.0-5.4) 10^6/ul Hgb (12.0-16.0) g/dl Hct (35-47) % MCV (80-97) fL MCH (27-31) pg MCHC (31-36) g/dl RDW (10.5-15) % Plt Count (150-450) 10^3/ul MPV (7.4-10.4) um3 Neut % (Auto) (38-83) % Lymph % (Auto) (25-47) % [place] % (Auto) (1-9) % Eos % (Auto) (0-6) % Baso % (Auto) (0-2) % Absolute Neuts (auto) (1.5-7.7) 10^3/ul Absolute Lymphs (auto) (1.0-4.8) 10^3/ul Absolute Monos (auto) (0-0.8) 10^3/ul Absolute Eos (auto) (0-0.6) 10^3/ul Absolute Basos (auto) (0-0.2) 10^3/ul Absolute Nucleated RBC 10^3/ul Nucleated RBC % Sodium (133-145) mmol/L Potassium (3.5-5.0) mmol/L Chloride (101-111) mmol/L Carbon Dioxide (22-32) mmol/L Anion Gap (2-11) mmol/L BUN (6-24) mg/dL Creatinine (0.51-0.95) mg/dL Est GFR ( Amer) (>60) Est GFR (Non-Af Amer) (>60) BUN/Creatinine Ratio (8-20) Glucose (70-100) mg/dL Lactic Acid (0.5-2.0) mmol/L Calcium (8.6-10.3) mg/dL Total Bilirubin (0.2-1.0) mg/dL AST (13-39) U/L ALT (7-52) U/L Alkaline Phosphatase (34-104) U/L C-Reactive Protein (< 5.00) mg/L Total Protein (6.4-8.9) g/dL Albumin (3.2-5.2) g/dL Globulin (2-4) g/dL Albumin/Globulin Ratio (1-3) Lipase (11.0-82.0) U/L Urine Color Yellow Straw Urine Appearance Cloudy Clear Urine pH 6.0 6.0 (5-9) Ur Specific [place] 1.008 L 1.010 (1.010-1.030) Urine Protein Negative Negative (Negative) Urine Ketones Negative Trace H (Negative) Urine Blood 3+ H 3+ H (Negative) Urine Nitrate Negative Negative (Negative) Urine Bilirubin Negative Negative (Negative) Urine Urobilinogen Negative Negative (Negative) Ur Leukocyte Esterase Trace H Negative (Negative) Urine WBC (Auto) 3+(>20/hpf) H Absent (Absent) Urine RBC (Auto) Trace(0-2/hpf) 3+(>10/hpf) H (Absent) Ur Squamous Epith Cells Present H Present H (Absent) Urine Bacteria Absent Absent (Absent) Urine Glucose Negative Negative (Negative) Result Diagrams: 11/03/17 14:42 11/03/17 14:42 Lab Statement: Any lab studies that have been ordered have been reviewed, and results considered in the medical decision making process. - Radiology Abdomen XR Radiology Interpretation Completed By: Radiologist - Abdomen XR reveals, per radiologist, no plain radiographic evidence of renal calculi. ED physician has reviewed this radiology report. - CT Abdomen/Pelvis CT CT Interpretation Completed By: Radiologist - Abdomen/pelvis CT reveals, per radiologist, 1. Hepatomegaly with hepatic steatosis. 2. Cholelithiasis, unchanged. 3. Bilateral nephrolithiasis. There is a 5 mm axis at the left UVJ producing moderate obstructive findings. ED physician has reviewed this radiology report. - Additional Comments Diagnostic Additional Comments: Renal US reveals, per radiologist, mild left-sided hydronephrosis. Left-sided nephrolithiasis. Nonvisualization left ureteral jet. ED physician has reviewed this radiology report. Abdominal Pain Fem Course/Dx - Course Course Of Treatment: Signoff to Malia Monet upon scribe shift change pending labs, disposition, and diagnosis. - Diagnoses Provider Diagnoses: Ureteral stone Discharge - Discharge Plan Condition: Stable Disposition: OTHER Discharge Disposition Comment: Signoff to Malia Monet upon scribe shift change Patient Education Materials: Ureteral Stones (ED) Referrals: No Primary Care Phys,NOPCP [Primary Care Provider] - Jose Baugh MD [Medical Doctor] - 3 Days The documentation as recorded by the Deepthi chambers Emily accurately reflects the service I personally performed and the decisions made by , Umer Mike MD.
== END 2017-11-03 21:26 ==
LOC: ED 14:16
DX: N20.1 Calculus of ureter (principal); Z87.442 Personal history of urinary calculi; N13.30 Unspecified hydronephrosis
CPT/HCPCS: 36415; 74018; 74176; 76775; 80053; 81003; 81015; 83605; 83690; 85025; 86140; 87086; 96360; 96374; 96375; 96376; 99283; A9270-GY; J1885; J2270; J2405

== ENCOUNTER 2017-11-08 16:41 | Observation (INO) | payer BC ==
[2017-11-08] MEDS ORDERED: NS 0.9% 1000 ML* 1,000 ML IV ONE (17:57)
[2017-11-08] MEDS ORDERED: Ketorolac INJ* 30 MG/ML 1 ML VIAL IV PUSH ONE (17:57)
[2017-11-08] MEDS ORDERED: Ketorolac INJ* 30 MG/ML 1 ML VIAL ONE (17:58)
[2017-11-08 18:44] LABS: ABS Basophils 0 10^3/ul (0-0.2); ABS Eosinophils 0.1 10^3/ul (0-0.6); ABS Lymphocytes 0.8 10^3/ul (1.0-4.8); ABS Monocytes 0.5 10^3/ul (0-0.8); ABS Neutrophils 3.5 10^3/ul (1.5-7.7); ABS Nucleated RBC 0 10^3/ul; Eosinophil % 1.7 % (0-6); Hematocrit 21 % (35-47); Hemoglobin 7.2 g/dl (12.0-16.0); Mean Corpuscular HGB Conc 34 g/dl (31-36); Mean Corpuscular Hemoglobin 31 pg (27-31); Mean Corpuscular Volume 92 fL (80-97); Mean Platelet Volume 9 um3 (7.4-10.4); Nucleated Red Blood Cells % 0; Platelet Count 137 10^3/ul (150-450); Red Blood Count 2.31 10^6/ul (4.0-5.4); Red Cell Distribution Width 13 % (10.5-15)
[2017-11-08 19:39] LABS: ABS Basophils 0.1 10^3/ul (0-0.2); ABS Eosinophils 0.2 10^3/ul (0-0.6); ABS Lymphocytes 1.7 10^3/ul (1.0-4.8); ABS Monocytes 0.9 10^3/ul (0-0.8); ABS Neutrophils 7.4 10^3/ul (1.5-7.7); ABS Nucleated RBC 0 10^3/ul; Eosinophil % 1.7 % (0-6); Hematocrit 39 % (35-47); Hemoglobin 13.5 g/dl (12.0-16.0); Lymphocyte % 16.7 % (25-47); Mean Corpuscular HGB Conc 34 g/dl (31-36); Mean Corpuscular Hemoglobin 31 pg (27-31); Mean Corpuscular Volume 90 fL (80-97); Mean Platelet Volume 9 um3 (7.4-10.4); Nucleated Red Blood Cells % 0; Platelet Count 267 10^3/ul (150-450); Red Blood Count 4.39 10^6/ul (4.0-5.4); Red Cell Distribution Width 13 % (10.5-15); White Blood Count 10.2 10^3/ul (3.5-10.8)
--- NOTE | 2017-11-08 19:40 | RAD ---
INDICATION: Urethral pain, known ureteral calculus. COMPARISON: Comparison is made with a prior CT of the abdomen and pelvis from November 03, 2017 and a renal ultrasound also from November 03, 2017. TECHNIQUE: Multiple real-time images of the kidneys and urinary bladder were obtained. FINDINGS: The kidneys are normal in size shape and echogenicity. The right kidney measured 11.6 x 5.8 x 6.6 cm and the left kidney measured 12.9 x 7.4 x 5.9 cm. There are small echogenic foci in the mid portions of both kidneys measuring 4 mm each most consistent with renal calculi. There is moderate left hydronephrosis which appears unchanged. The bladder is normal in contour. No intraluminal abnormalities are seen. No bladder wall thickening is noted. There is a normal right ureteral jet. There is no left ureteral jet. The prevoid volume was 242 ml and a post void residual was 8 ml. IMPRESSION: 1. THERE IS MODERATE LEFT HYDRONEPHROSIS WHICH IS UNCHANGED AND NO LEFT URETERAL JET CONSISTENT WITH PERSISTENT OBSTRUCTION OF THE LEFT URETER NOTED ON THE PRIOR CT STUDY. 2. SMALL BILATERAL RENAL CALCULI.
[2017-11-08 19:54] LABS: Urine Appearance Clear; Urine Blood 2+ (Negative); Urine Color Straw; Urine Ketones Negative (Negative); Urine Protein Negative (Negative); Urine Specific Gravity 1.009 (1.010-1.030); Urine Urobilinogen Negative (Negative)
[2017-11-08] MEDS ORDERED: Ciprofloxacin 400MG IVPREMIX(* 400 MG/200 ML BAG IVPB ONE (20:10)
[2017-11-08] MEDS ORDERED: Morphine INJ* 4 MG/ML 1 ML CARPUJECT IV ONE (20:10)
[2017-11-08] MEDS ORDERED: Ondansetron INJ* 2 MG/ML VIAL IV ONE (20:11)
[2017-11-08 20:24] LABS: EGFR Non-African American 71.8 (>60)
[2017-11-08] MEDS ORDERED: Ondansetron INJ* 2 MG/ML VIAL IV PRN (21:30)
[2017-11-08] MEDS ORDERED: Albuterol 2.5 MG/3 ML NEB.SOL* (0.083%) INH PRN (21:30)
[2017-11-08] MEDS ORDERED: CMCS: Melatonin (NF) 3 MG TAB PO PRN (21:30)
[2017-11-08] MEDS: HYDROmorphone INJ* 2 MG/ML CARPUJECT SYRINGE IV PRN (23:17)
[2017-11-08] MEDS: NS 0.9% 1000 ML* 1,000 ML IV SCH (23:17)
--- NOTE | 2017-11-08 23:39 | HP ---
H&P (Free Text) History and Physical: PCP: none Urology: Lula Brantley MD Date/Time: 11/08/20172119 CC: L flank pain HPI: Ms Horton is a 27YO obese white female HX urolithiasis & anxiety who reports onset of intermittent L flank pain 1 month ago which has waxed and waned , gradually migrating around to the LLQ and now into the groin/vaginal area. She reports nausea without emesis, denies F/C, sweats, or other issues. US reveals moderate L hydronephrosis and absence of a L ureteral jet. Plan is to observe for pain control and evaluation in the AM via Lula Brantley MD urology. Of note she was seen in ED 10/12, 10/21, 10/24, & now 11/08/2017 for this L flank pain, but did not follow up with urology outpatient as advised. 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 [employer]; full code status FamHx: Mother: alive at 57 w/ HX diverticulitis; Father: alive at 60 w/ HTN & DM2 ROS: as above, otherwise reviewed and all were negative vitals: Vital Signs Temp 36.7 C 11/09/17 00:04 Pulse 78 11/09/17 00:04 Resp 18 11/09/17 00:38 BP 112/52 11/09/17 00:04 Pulse Ox 97 11/09/17 00:04 Intake & Output 11/08/17 11/08/17 11/09/17 11:59 23:59 11:59 Intake Total 1200 Output Total 50 Balance 1150 Weight 97.522 kg Intake: IV Fluids 1200 Output: Urine 50 Constitutional: NAD, normally developed, well-nourished obese white female HEENM: atraumatic; sclera/conjunctiva: anicteric/clear; hearing: clinically intact; oropharynx: clear, mucosa tacky Neck: soft tissue: non-tender; thyroid: normal Pulmonary: clear to auscultation bilaterally, good aeration, no accessory muscle use CV: RR/RR, normal S1S2, no carotid bruit, no jugular venous distention, 2+ B DP/ PT, no edema Abdominal: soft, non-distended, mildly tender LLQ, no rebound/guarding/rigidity , normoactive bowel sounds, no hepatosplenomegaly or masses, no costovertebral angle tenderness Musculoskeletal: general: grossly intact; gait: stable Integumental: normal appearance and texture of exposed skin Psychiatric orientation: AA&O to PPS affect: calm mood: cooperative eye contact: good content: reliable responses: timely insight: fair Testing: Lab Results 11/08/17 11/08/17 11/08/17 Range/Units 18:29 18:29 18:29 WBC 5.0 (3.5-10.8) 10^3/ul RBC 2.31 L (4.0-5.4) 10^6/ul Hgb 7.2 L (12.0-16.0) g/dl Hct 21 L (35-47) % MCV 92 (80-97) fL MCH 31 (27-31) pg MCHC 34 (31-36) g/dl RDW 13 (10.5-15) % Plt Count 137 L (150-450) 10^3/ul MPV 9 (7.4-10.4) um3 Neut % (Auto) 70.1 (38-83) % Lymph % (Auto) 17.0 L (25-47) % Bea[place]gard % (Auto) 10.9 H (1-9) % Eos % (Auto) 1.7 (0-6) % Baso % (Auto) 0.3 (0-2) % Absolute Neuts (auto) 3.5 (1.5-7.7) 10^3/ul Absolute Lymphs (auto) 0.8 L (1.0-4.8) 10^3/ul Absolute Monos (auto) 0.5 (0-0.8) 10^3/ul Absolute Eos (auto) 0.1 (0-0.6) 10^3/ul Absolute Basos (auto) 0 (0-0.2) 10^3/ul Absolute Nucleated RBC 0 10^3/ul Nucleated RBC % 0 Sodium Cancelled Potassium Cancelled Chloride Cancelled Carbon Dioxide Cancelled Anion Gap Cancelled BUN Cancelled Creatinine Cancelled Est GFR ( Amer) Cancelled Est GFR (Non-Af Amer) Cancelled BUN/Creatinine Ratio Cancelled Glucose Cancelled Lactic Acid 0.3 L (0.5-2.0) mmol/L Calcium Cancelled Total Bilirubin Cancelled AST Cancelled ALT Cancelled Alkaline Phosphatase Cancelled C-Reactive Protein Cancelled Total Protein Cancelled Albumin Cancelled Globulin Cancelled Albumin/Globulin Ratio Cancelled Lipase Cancelled Urine Color Urine Appearance Urine pH (5-9) Ur Specific [place] (1.010-1.030) Urine Protein (Negative) Urine Ketones (Negative) Urine Blood (Negative) Urine Nitrate (Negative) Urine Bilirubin (Negative) Urine Urobilinogen (Negative) Ur Leukocyte Esterase (Negative) Urine WBC (Auto) (Absent) Urine RBC (Auto) (Absent) Ur Squamous Epith Cells (Absent) Urine Bacteria (Absent) Urine Glucose (Negative) 11/08/17 11/08/17 11/08/17 Range/Units 19:30 19:30 19:30 WBC 10.2 (3.5-10.8) 10^3/ul RBC 4.39 (4.0-5.4) 10^6/ul Hgb 13.5 (12.0-16.0) g/dl Hct 39 (35-47) % MCV 90 (80-97) fL MCH 31 (27-31) pg MCHC 34 (31-36) g/dl RDW 13 (10.5-15) % Plt Count 267 (150-450) 10^3/ul MPV 9 (7.4-10.4) um3 Neut % (Auto) 71.9 (38-83) % Lymph % (Auto) 16.7 L (25-47) % Bea[place]gard % (Auto) 9.1 H (1-9) % Eos % (Auto) 1.7 (0-6) % Baso % (Auto) 0.6 (0-2) % Absolute Neuts (auto) 7.4 (1.5-7.7) 10^3/ul Absolute Lymphs (auto) 1.7 (1.0-4.8) 10^3/ul Absolute Monos (auto) 0.9 H (0-0.8) 10^3/ul Absolute Eos (auto) 0.2 (0-0.6) 10^3/ul Absolute Basos (auto) 0.1 (0-0.2) 10^3/ul Absolute Nucleated RBC 0 10^3/ul Nucleated RBC % 0 Sodium 140 Potassium 4.1 Chloride 108 Carbon Dioxide 25 Anion Gap 7 BUN 12 Creatinine 0.93 Est GFR ( Amer) 92.3 Est GFR (Non-Af Amer) 71.8 BUN/Creatinine Ratio 12.9 Glucose 89 Lactic Acid (0.5-2.0) mmol/L Calcium 9.1 Total Bilirubin 0.80 AST 24 ALT 35 Alkaline Phosphatase 50 C-Reactive Protein 3.02 Total Protein 6.9 Albumin 4.0 Globulin 2.9 Albumin/Globulin Ratio 1.4 Lipase 28 Urine Color Straw Urine Appearance Clear Urine pH 6.0 (5-9) Ur Specific [place] 1.009 L (1.010-1.030) Urine Protein Negative (Negative) Urine Ketones Negative (Negative) Urine Blood 2+ H (Negative) Urine Nitrate Negative (Negative) Urine Bilirubin Negative (Negative) Urine Urobilinogen Negative (Negative) Ur Leukocyte Esterase Negative (Negative) Urine WBC (Auto) Trace(0-5/hpf) (Absent) Urine RBC (Auto) 3+(>10/hpf) H (Absent) Ur Squamous Epith Cells Present H (Absent) Urine Bacteria Absent (Absent) Urine Glucose Negative (Negative) US abd: IMPRESSION: 1. THERE IS MODERATE LEFT HYDRONEPHROSIS WHICH IS UNCHANGED AND NO LEFT URETERAL JET CONSISTENT WITH PERSISTENT OBSTRUCTION OF THE LEFT URETER NOTED ON THE PRIOR CT STUDY. 2. SMALL BILATERAL RENAL CALCULI. CT abd/pel WO, personally reviewed (11/03/2017): IMPRESSION: 1. Hepatomegaly with hepatic steatosis. 2. Cholelithiasis, unchanged. 3. Bilateral nephrolithiasis. There is a 5 mm axis at the left UVJ producing moderate obstructive findings. Impression: 27F presenting with persistent L ureteral obstruction via 5mm UVJ stone DIAGNOSIS & PLAN Primary L ureterolithiasis w/ obstruction : pain control : given 400mg ciprofloxacin IV in ED : NPO x/ meds w/ sips clears after midnight : Lula Brantley MD urology consulted by ED, will evaluate in AM : supportive care Secondary anxiety : no acute issues Admission Rational: observation for L ureteral obstruction DVTp: SCDs Code Status: full
[2017-11-09] MEDS: HYDROmorphone INJ* 2 MG/ML CARPUJECT SYRINGE IV PRN ×3 (02:10→08:03)
[2017-11-09] MEDS: NS 0.9% 1000 ML* 1,000 ML IV SCH (04:15)
[2017-11-09] MEDS: Omeprazole CAP* 20 MG PO SCH (05:26)
[2017-11-09 05:57] LABS: Hematocrit 35 % (35-47); Mean Corpuscular HGB Conc 35 g/dl (31-36); Mean Corpuscular Hemoglobin 32 pg (27-31); Mean Corpuscular Volume 91 fL (80-97); Mean Platelet Volume 9 um3 (7.4-10.4); Platelet Count 220 10^3/ul (150-450); Red Cell Distribution Width 13 % (10.5-15); White Blood Count 6.7 10^3/ul (3.5-10.8)
[2017-11-09] MEDS: Docusate CAP* 100 MG PO SCH (08:54)
[2017-11-09] MEDS ORDERED: cefTRIAXone(*) 2 GM in NS 0.9% 100 ML* 100 ML IVPB ONE (09:00)
[2017-11-09] MEDS ORDERED: Gentamicin ADULT (*) 160 MG in NS 0.9% 100 ML* 100 ML IVPB ONE (09:00)
[2017-11-09] MEDS ORDERED: Iohexol 180 (CONTRAST) 10 ML SDV IV ONE (09:06)
[2017-11-09] MEDS ORDERED: fentaNYL* 50 MCG/ML 2 ML VIAL (100 MCG VIAL) ONE ×2 (09:11→10:32)
[2017-11-09] MEDS ORDERED: KETAMINE HCL* 50 MG/ML 10 ML VIAL ONE (09:11)
[2017-11-09] MEDS ORDERED: Midazolam* 1 MG/ML 2 ML VIAL (2 MG) ONE (09:11)
[2017-11-09] MEDS ORDERED: Dexamethasone IV* 4 MG/ML 1 ML (4 MG) ONE (09:11)
[2017-11-09] MEDS ORDERED: Lidocaine 2% PF * 5 ML VIAL ONE (09:11)
[2017-11-09] MEDS ORDERED: Ketorolac INJ* 30 MG/ML 1 ML VIAL ONE (09:11)
[2017-11-09] MEDS ORDERED: Propofol* 10 MG/ML 20 ML BTL IV PUSH ONE (09:11)
[2017-11-09] MEDS ORDERED: Ondansetron INJ* 2 MG/ML VIAL ONE (09:11)
[2017-11-09] MEDS ORDERED: Naloxone* 0.4 MG/ML 1 ML VIAL IV PRN (11:03)
[2017-11-09] MEDS ORDERED: Ondansetron INJ* 2 MG/ML VIAL IV PRN (11:03)
[2017-11-09] MEDS ORDERED: fentaNYL* 50 MCG/ML 2 ML VIAL (100 MCG VIAL) IV PRN (11:03)
--- NOTE | 2017-11-09 11:08 | RAD ---
CPT II Codes: 6045F INDICATION: Left renal calculus TECHNIQUE: Intraoperative fluoroscopy was provided during retrograde left-sided nephrostogram with ureteral stent placement. FINDINGS: 7 spot films depict mild dilatation of the left renal collecting system followed by anatomic placement of a left ureteral stent. Fluoroscopy time: 4 seconds IMPRESSION: As above.
[2017-11-09] MEDS ORDERED: oxyCODONE/Acetamin 5/325 MG* TAB PO PRN (12:00)
--- NOTE | 2017-11-09 12:40 | PN ---
Subjective Date of Service: 11/09/17 Interval History: Pt examined today at the bedside post-procedure. Pt states she is feeling better. She denies chest pain or sob. States her flank pain is resolved. Denies nausea or vomiting. ROS-denies fever, denies chills, denies chest pain, denies sob, denies nausea, denies vomiting, denies lightheadedness, denies loc, denies flank pain, review of 11 systems completed all others negative, Objective Active Medications: Acetaminophen (Tylenol Tab*) 650 mg PO Q6H PRN PRN Reason: FEVER/PAIN Albuterol (Ventolin 2.5 Mg/3 Ml Neb.Leslie*) 2.5 mg INH Q2H PRN PRN Reason: SOB/WHEEZING Docusate Sodium (Colace Cap*) 200 mg PO BID [facility] Last Admin: 11/09/17 08:54 Dose: Not Given Fentanyl Citrate (Fentanyl*) 25 mcg IV Q5M PRN PRN Reason: PAIN - MODERATE Sodium Chloride (Ns 0.9% 1000 Ml*) 1,000 mls @ 200 mls/hr IV PER RATE [facility] Last Admin: 11/09/17 04:15 Dose: 200 mls/hr Lactated Ringer's (Lactated Ringers 1000 Ml Bag*) 1,000 mls @ 250 mls/hr IV PER RATE [facility] Melatonin (Melatonin (Nf)) 3 mg PO BEDTIME PRN; Protocol PRN Reason: Sleep Naloxone HCl (Narcan*) 0.08 mg IV Q2M PRN PRN Reason: severe induced resp depression Stop: 11/10/17 11:02 Omeprazole (Prilosec Cap*) 20 mg PO DAILY@0600 [facility] Last Admin: 11/09/17 05:26 Dose: 20 mg Ondansetron HCl (Zofran Inj*) 4 mg IV Q6H PRN PRN Reason: NAUSEA Ondansetron HCl (Zofran Inj*) 4 mg IV ONCE PRN PRN Reason: NAUSEA/VOMITING Vital Signs - 8 hr 11/09/17 11/09/17 11/09/17 05:31 06:47 07:43 Temperature 97.8 F Pulse Rate 65 Respiratory 18 14 17 Rate Blood Pressure 129/71 (mmHg) O2 Sat by Pulse 98 Oximetry 02/03/18 02/03/18 02/03/18 08:00 08:03 10:55 Temperature 97.7 F Pulse Rate 71 Respiratory 16 20 12 Rate Blood Pressure 123/59 (mmHg) O2 Sat by Pulse 96 Oximetry 11/09/17 11/09/17 11/09/17 11:00 11:05 11:10 Temperature Pulse Rate 74 68 68 Respiratory 16 14 16 Rate Blood Pressure 116/62 118/71 123/69 (mmHg) O2 Sat by Pulse 97 100 100 Oximetry 11/09/17 11/09/17 11:15 11:34 Temperature Pulse Rate 72 89 Respiratory 16 16 Rate Blood Pressure 132/74 135/78 (mmHg) O2 Sat by Pulse 100 98 Oximetry Oxygen Devices in Use Now: None Appearance: 27 y/o obese female sitting in bed NAD, Eyes: No Scleral Icterus, PERRLA Ears/Nose/Mouth/Throat: NL Teeth, Lips, Gums Neck: NL Appearance and Movements; NL JVP Respiratory: Symmetrical Chest Expansion and Respiratory Effort, Clear to Auscultation Cardiovascular: NL Sounds; No Murmurs; No JVD Abdominal: NL Sounds; No Tenderness; No Distention, - - no cva tenderness Lymphatic: No Cervical Adenopathy Extremities: No Edema Skin: No Rash or Ulcers Neurological: Alert and Oriented x 3 Lines/Tubes/Other Access: Clean, Dry and Intact Peripheral IV Result Diagrams: 11/09/17 05:26 11/08/17 19:30 Assess/Plan/Problems-Billing Assessment: 27 y/o female patient [place] [facility] [place] of [place] pain found to have left sided nephroliathsis with hydronephrosis - Patient Problems (1) Nephrolithiasis Current Visit: Yes Status: Acute Priority: High Comment: S/P left ureteral stent to f/u with urology (2) Hydronephrosis Current Visit: Yes Status: Acute Priority: High Comment: S/p stent pain well controlled and improved (3) Anxiety Current Visit: Yes Status: Acute Priority: High Comment: continue with supprotive care, (4) DVT prophylaxis Current Visit: Yes Status: Acute Priority: High Comment: scd (5) FEN Current Visit: Yes Status: Acute Priority: High Comment: Regular (6) Full code status Current Visit: Yes Status: Acute Priority: High Status and Disposition: home when stable
[2017-11-09] MEDS: Acetaminophen TAB* 325 MG PO PRN (18:27)
[2017-11-10] MEDS: Docusate CAP* 100 MG PO SCH ×2 (00:37→08:27)
[2017-11-10] MEDS: Acetaminophen TAB* 325 MG PO PRN ×2 (00:37→06:34)
[2017-11-10] MEDS: Omeprazole CAP* 20 MG PO SCH (06:34)
--- NOTE | 2017-11-10 07:30 | PN ---
Subjective Date of Service: 11/10/17 Interval History: Ms. Horton is wide awake and feeling well this morning. She reports needing only tylenol overnight for pain. She is eager for discharge to home. Objective Active Medications: Acetaminophen (Tylenol Tab*) 650 mg PO Q6H PRN Albuterol (Ventolin 2.5 Mg/3 Ml Neb.Leslie*) 2.5 mg INH Q2H PRN Docusate Sodium (Colace Cap*) 200 mg PO BID [facility] Lactated Ringer's (Lactated Ringers 1000 Ml Bag*) 1,000 mls @ 250 mls/hr IV PER RATE [facility] Melatonin (Melatonin (Nf)) 3 mg PO BEDTIME PRN; Protocol Omeprazole (Prilosec Cap*) 20 mg PO DAILY@0600 [facility] Ondansetron HCl (Zofran Inj*) 4 mg IV Q6H PRN Vital Signs: Temp Pulse Resp BP Pulse Ox 98.5 F 60 18 117/61 98 11/10/17 03:56 11/10/17 03:56 11/10/17 03:56 11/10/17 03:56 11/10/17 03:56 Oxygen Devices in Use Now: None Appearance: Female sitting up in chair in NAD Eyes: No Scleral Icterus Ears/Nose/Mouth/Throat: Mucous Membranes Moist Neck: Trachea Midline Respiratory: Symmetrical Chest Expansion and Respiratory Effort, Clear to Auscultation Cardiovascular: NL Sounds; No Murmurs; No JVD, No Edema Abdominal: NL Sounds; No Tenderness; No Distention Lymphatic: No Cervical Adenopathy Extremities: No Edema Skin: No Rash or Ulcers Neurological: Alert and Oriented x 3, NL Muscle Strength and Tone Nutrition: Taking PO's Result Diagrams: 11/09/17 05:26 11/08/17 19:30 Assess/Plan/Problems-Billing Assessment: 27 y/o female patient [place] [facility] [place] of [place] pain found to have left sided nephroliathsis with hydronephrosis - Patient Problems (1) Nephrolithiasis Comment: S/P left ureteral stent to f/u with urology (2) DVT prophylaxis Comment: - scd (3) Full code status Comment: Status and Disposition: Discharge to home.
[2017-11-10 08:26] VITALS: BP 132/55
--- NOTE | 2017-11-10 09:48 | OP ---
DATE OF OPERATION: 11/09/17 - ROOM #347 DATE OF : 88 SURGEON: Hay Brantley MD ANESTHESIOLOGIST: Dr. Herrera. ANESTHESIA: General. PRE-OP DIAGNOSES: 1. Left ureteral calculus. 2. Left hydronephrosis. POST-OP DIAGNOSES: 1. Left ureteral calculus. 2. Left hydronephrosis. OPERATIVE PROCEDURE: Cystoscopy, left retrograde pyelogram, left ureteroscopy and laser lithotripsy of left ureteral calculus and removal of calculus fragments and left stent insertion. COMPLICATIONS: None. POSTOPERATIVE CONDITION: Stable. STENT USED: 6-[place] stent left ureter. OPERATIVE FINDINGS: Approximately 5 to 6 mm calculus impacted in left distal ureter with surrounding edema and inflammation and left hydronephrosis. INDICATIONS: Martha Horton is a 27-year-old young lady with history of recurrent renal calculi. She has had three trips to the emergency room for left flank pain secondary to an obstructing left ureteral calculus. DESCRIPTION OF PROCEDURE: After induction of general anesthesia, patient was placed in dorsal lithotomy position. Sequential compression devices were in place and functioning. Initial cystoscopy revealed normal-appearing bladder except for some edema and inflammation surrounding the left orifice. A guidewire was introduced and advanced into the proximal collecting system. The 6-[place] semi- rigid ureteroscope was introduced and a 5 to 6 mm calculus was noted to be impacted about 2 cm above the ureterovesical junction with surrounding edema and inflammation. Using a 550 micron Holmium laser, this was successfully broken up into multiple fragments all of which were retrieved. A 6 -[place] stent was introduced and positioned under fluoroscopy with good proximal and distal positioning obtained. The bladder was emptied. The patient tolerated the procedure satisfactorily and was transferred back to the recovery area in stable condition. [id number]/[facility]PS #: [id number] [facility]
--- NOTE | 2017-11-10 12:34 | ED ---
[facility] Julia, scribed for Umer Mike MD on 11/08/17 at 1759 . Abdominal Pain/Female - HPI Summary HPI Summary: This patient is a 27 year old F presenting to [facility] with a chief complaint of pain in urethra pain since 22:00 last night. Patient reports nausea, L flank pain and urinary frequency (every 45 minutes). Patient denies stones in urine or vomiting. The patient rates the pain 10/10 in severity. Patient reports increase in fluid intake. Patient has history of recent kidney stones. - History of Current Complaint Chief Complaint: EDFlankPain Stated Complaint: ABD PAIN/UNABLE TO URINATE Time Seen by Provider: 11/08/17 17:53 Hx Obtained From: Patient Onset/Duration: Lasting Hours Timing: Constant Pain Intensity: 10 Pain Scale Used: 0-10 Numeric Location: Flank - L and urethra Associated Signs and Symptoms: Positive: Other: - nausea, L flank pain and urinary frequency (every 45 minutes) Simlar Episode/Dx as:: Kidney stones Allergies/Adverse Reactions: Allergies Allergy/AdvReac Type Severity Reaction Status Date / Time No Known Allergies Allergy Verified 11/08/17 20:23 PMH/Surg Hx/FS Hx/Imm Hx Endocrine/Hematology History: Denies: Hx Diabetes, Hx Thyroid Disease Cardiovascular History: Denies: Hx Hypertension Respiratory History: Denies: Hx Asthma, Hx Chronic Obstructive Pulmonary Disease (COPD) GI History: Denies: Hx Ulcer History: Reports: Hx Kidney Infection - kidney stone ablation, Hx Kidney Stones - Surgical History Surgery Procedure, Year, and Place: - January 08 Infectious Disease History: No Infectious Disease History: Denies: Hx Clostridium Difficile, Hx Hepatitis, Hx Human Immunodeficiency Virus (HIV), Hx of Known/Suspected MRSA, Hx Shingles, Hx Tuberculosis, Hx Known/ Suspected VRE, Hx Known/Suspected VRSA, History Other Infectious Disease, Traveled Outside the [place] in Last 30 Days - Family History Known Family History: Positive: Diabetes, Other - Diverticulitis - Social History Alcohol Use: None Substance Use Type: Reports: None Smoking Status (MU): Former Smoker Type: Cigarettes Have You Smoked in the Last Year: No Review of Systems Negative: Fever, Chills Negative: Erythema Negative: Sore Throat Negative: Chest Pain Negative: Shortness Of Breath, Cough Negative: Vomiting Genitourinary: Negative - stones in urine Positive: frequency, urgency. Negative: dysuria, hematuria Negative: Myalgia, Edema Negative: Rash Neurological: Negative - headache All Other Systems Reviewed And Are Negative: Yes Physical Exam - Summary Physical Exam Summary: Constitutional: Well-developed, Well-nourished, Alert. (+) Distressed (Pt is writhing in pain) Skin: Warm, Dry HENT: Normocephalic; Atraumatic Eyes: Conjunctiva normal Neck: Musculoskeletal ROM normal neck. (-) JVD, (-) Stridor, (-) Tracheal deviation Cardio: Rhythm regular, rate normal, Heart sounds normal; Intact distal pulses; The pedal pulses are 2+ and symmetric. Radial pulses are 2+ and symmetric. (-) Murmur Pulmonary/Chest wall: Effort normal. (-) Respiratory distress, (-) Wheezes, (-) Rales Abd: Soft, (-) Tenderness, (-) Distension, (-) Guarding, (-) Rebound Musculoskeletal: (-) Edema Lymph: (-) Cervical adenopathy Neuro: Alert, Oriented x3 Psych: Mood and affect Normal Triage Information Reviewed: Yes Vital Signs On Initial Exam: Initial Vitals Temp Pulse Resp BP Pulse Ox 98 F 103 20 146/119 98 11/08/17 16:52 11/08/17 16:52 11/08/17 16:52 11/08/17 16:52 11/08/17 16:52 Vital Signs Reviewed: Yes Diagnostics - Vital Signs Vital Signs Temp Pulse Resp BP Pulse Ox 11/08/17 16:52 98 F 103 20 146/119 98 - Laboratory Lab Results: Lab Results 11/08/17 11/08/17 11/08/17 Range/Units 18:29 18:29 18:29 WBC 5.0 (3.5-10.8) 10^3/ul RBC 2.31 L (4.0-5.4) 10^6/ul Hgb 7.2 L (12.0-16.0) g/dl Hct 21 L (35-47) % MCV 92 (80-97) fL MCH 31 (27-31) pg MCHC 34 (31-36) g/dl RDW 13 (10.5-15) % Plt Count 137 L (150-450) 10^3/ul MPV 9 (7.4-10.4) um3 Neut % (Auto) 70.1 (38-83) % Lymph % (Auto) 17.0 L (25-47) % Montague % (Auto) 10.9 H (1-9) % Eos % (Auto) 1.7 (0-6) % Baso % (Auto) 0.3 (0-2) % Absolute Neuts (auto) 3.5 (1.5-7.7) 10^3/ul Absolute Lymphs (auto) 0.8 L (1.0-4.8) 10^3/ul Absolute Monos (auto) 0.5 (0-0.8) 10^3/ul Absolute Eos (auto) 0.1 (0-0.6) 10^3/ul Absolute Basos (auto) 0 (0-0.2) 10^3/ul Absolute Nucleated RBC 0 10^3/ul Nucleated RBC % 0 Sodium Cancelled Potassium Cancelled Chloride Cancelled Carbon Dioxide Cancelled Anion Gap Cancelled BUN Cancelled Creatinine Cancelled Est GFR ( Amer) Cancelled Est GFR (Non-Af Amer) Cancelled BUN/Creatinine Ratio Cancelled Glucose Cancelled Lactic Acid 0.3 L (0.5-2.0) mmol/L Calcium Cancelled Total Bilirubin Cancelled AST Cancelled ALT Cancelled Alkaline Phosphatase Cancelled C-Reactive Protein Cancelled Total Protein Cancelled Albumin Cancelled Globulin Cancelled Albumin/Globulin Ratio Cancelled Lipase Cancelled Urine Color Urine Appearance Urine pH (5-9) Ur Specific Greenleaf (1.010-1.030) Urine Protein (Negative) Urine Ketones (Negative) Urine Blood (Negative) Urine Nitrate (Negative) Urine Bilirubin (Negative) Urine Urobilinogen (Negative) Ur Leukocyte Esterase (Negative) Urine WBC (Auto) (Absent) Urine RBC (Auto) (Absent) Ur Squamous Epith Cells (Absent) Urine Bacteria (Absent) Urine Glucose (Negative) 11/08/17 11/08/17 11/08/17 Range/Units 19:30 19:30 19:30 WBC 10.2 (3.5-10.8) 10^3/ul RBC 4.39 (4.0-5.4) 10^6/ul Hgb 13.5 (12.0-16.0) g/dl Hct 39 (35-47) % MCV 90 (80-97) fL MCH 31 (27-31) pg MCHC 34 (31-36) g/dl RDW 13 (10.5-15) % Plt Count 267 (150-450) 10^3/ul MPV 9 (7.4-10.4) um3 Neut % (Auto) 71.9 (38-83) % Lymph % (Auto) 16.7 L (25-47) % Montague % (Auto) 9.1 H (1-9) % Eos % (Auto) 1.7 (0-6) % Baso % (Auto) 0.6 (0-2) % Absolute Neuts (auto) 7.4 (1.5-7.7) 10^3/ul Absolute Lymphs (auto) 1.7 (1.0-4.8) 10^3/ul Absolute Monos (auto) 0.9 H (0-0.8) 10^3/ul Absolute Eos (auto) 0.2 (0-0.6) 10^3/ul Absolute Basos (auto) 0.1 (0-0.2) 10^3/ul Absolute Nucleated RBC 0 10^3/ul Nucleated RBC % 0 Sodium 140 Potassium 4.1 Chloride 108 Carbon Dioxide 25 Anion Gap 7 BUN 12 Creatinine 0.93 Est GFR ( Amer) 92.3 Est GFR (Non-Af Amer) 71.8 BUN/Creatinine Ratio 12.9 Glucose 89 Lactic Acid (0.5-2.0) mmol/L Calcium 9.1 Total Bilirubin 0.80 AST 24 ALT 35 Alkaline Phosphatase 50 C-Reactive Protein 3.02 Total Protein 6.9 Albumin 4.0 Globulin 2.9 Albumin/Globulin Ratio 1.4 Lipase 28 Urine Color Straw Urine Appearance Clear Urine pH 6.0 (5-9) Ur Specific Greenleaf 1.009 L (1.010-1.030) Urine Protein Negative (Negative) Urine Ketones Negative (Negative) Urine Blood 2+ H (Negative) Urine Nitrate Negative (Negative) Urine Bilirubin Negative (Negative) Urine Urobilinogen Negative (Negative) Ur Leukocyte Esterase Negative (Negative) Urine WBC (Auto) Trace(0-5/hpf) (Absent) Urine RBC (Auto) 3+(>10/hpf) H (Absent) Ur Squamous Epith Cells Present H (Absent) Urine Bacteria Absent (Absent) Urine Glucose Negative (Negative) Result Diagrams: 11/09/17 05:26 11/08/17 19:30 Lab Statement: Any lab studies that have been ordered have been reviewed, and results considered in the medical decision making process. - Additional Comments Diagnostic Additional Comments: Abdomen/Bladder US reveals: 1. THERE IS MODERATE LEFT HYDRONEPHROSIS WHICH IS UNCHANGED AND NO LEFT URETERAL JET CONSISTENT WITH PERSISTENT OBSTRUCTION OF THE LEFT URETER NOTED ON THE PRIOR CT STUDY. 2. SMALL BILATERAL RENAL CALCULI. ED Physician has reviewed this report. Re-Evaluation - Re-Evaluation 1 Re-Evaluation Time: 20:03 Change: Unchanged - still in significant pain and hesitation with urination Abdominal Pain Fem Course/Dx - Course Course Of Treatment: Pt presents with pain in urethra pain since 22:00 last night. Patient reports nausea, L flank pain and urinary frequency (every 45 minutes). Patient denies stones in urine or vomiting. Patient has history of recent kidney stones. Abdomen/Bladder US reveals hydronephrosis with no uretal jet. Patient has no signs of sepsis. Dr. Brantley will permorm surgery tomorrow at 8:30. Dr. Barksdale agrees to admit pt. - Diagnoses Provider Diagnoses: Ureteral obstruction Discharge - Discharge Plan Condition: Stable Disposition: ADMITTED TO [facility] The documentation as recorded by the [facility] accurately reflects the service I personally performed and the decisions made by , Umer Mike MD.
--- NOTE | 2017-11-10 14:13 | DS ---
HOSPITAL MEDICINE DISCHARGE SUMMARY: DATE OF ADMISSION: 11/09/17 DATE OF DISCHARGE: 11/10/17 ATTENDING PHYSICIAN: Dr. Jabier Rose * (dictation provided by Heather Gamez NP). PRIMARY DIAGNOSIS: Nephrolithiasis with hydronephrosis, status post cystoscopy with ureteral stent placement on the left. SECONDARY DIAGNOSES: 1. History of urolithiasis. 2. Anxiety. 3. Sciatica. MEDICATIONS AT THE TIME OF DISCHARGE: None. HOSPITAL COURSE: Ms. Horton is a 27-year-old female with a past medical history of recent nephrolithiasis with multiple presentations to the ED over the past few weeks, who again presented on 11/08/17 with concern for left flank pain. Please see the dictated H and P from Dr. Barksdale for complete details. In brief, the patient had waxing and waning left lower quadrant pain. In the emergency room, she had an ultrasound that showed moderate left hydronephrosis and no left ureteral jet consistent with persistent obstruction of the left ureter as noted on the prior CT study. The CT study showed bilateral nephrolithiasis and a 5-mm axis at the left UVJ producing moderate obstructive findings. Ms. Horton went on to have a cystoscopy with stent placement on the left with Dr. Brantley on 11/09/17. She was medically appropriate for discharge; however, she had no one to take her home. Her car is here at the hospital and she needed to drive herself; therefore, she required observation in the hospital overnight as despite her effort, she could not find an alternate ride home. Ms. Horton has been monitored overnight after anesthesia for her cystoscopy and she is doing quite well. She is wide awake. She has had no further narcotics or any other sedative medications since early yesterday morning. Plans are for discharge to home. DISPOSITION: Discharged to home. DIET: Regular. ACTIVITY: As tolerated. FOLLOWUP PLANS: Please follow up with Dr. Brantley regarding further care and likely removal of stent in the future as well as care of ongoing issues of nephrolithiasis. TIME SPENT: Approximately 60 minutes were spent on the discharge of this patient, more than half time spent with the patient at the bedside reviewing the events leading up to and during this hospitalization, performing the physical examination, and reviewing my plan of care. HEATHER GMAEZ NP [id number]/[facility] #: [id number] WENDI
== END 2017-11-10 10:00 | disposition home or self-care (01) ==
LOC: ED 16:41 → SSU 21:28
PROVIDERS: ADMIT Hospitalist; ATTEND Internal Medicine
PROC: 0TC78ZZ Extirpation of Matter from Left Ureter, Via Natural or Artificial Opening Endoscopic (ICD-10-PCS; principal; 2017-11-08)
PROC: 0T778DZ Dilation of Left Ureter with Intraluminal Device, Via Natural or Artificial Opening Endoscopic (ICD-10-PCS; 2017-11-08)
DX: N21.1 Calculus in urethra (principal); N13.30 Unspecified hydronephrosis; Z87.442 Personal history of urinary calculi; F41.9 Anxiety disorder, unspecified; M54.30 Sciatica, unspecified side; R10.32 Left lower quadrant pain
CPT/HCPCS: 36415; 74420; 76770; 80053; 81003; 81015; 82365; 83605; 83690; 84702; 85025; 85027; 86140; 88300; 96365; 96366; 99285; A9270-GY; C1876; G0378; J0696; J0744; J1100; J1170; J1580; J1885; J2250; J2270; J2405; J2704; J3010

== ENCOUNTER 2019-05-06 08:58 | Observation (INO) | payer BC ==
[2019-05-06 09:46] LABS: ABS Basophils 0.1 10^3/ul (0-0.2); ABS Eosinophils 0.1 10^3/ul (0-0.6); ABS Lymphocytes 0.7 10^3/ul (1.0-4.8); ABS Monocytes 0.9 10^3/ul (0-0.8); ABS Neutrophils 14.6 10^3/ul (1.5-7.7); Eosinophil % 0.4 %; Hematocrit 38 % (35-47); Hemoglobin 12.8 g/dL (12.0-16.0); Lymphocyte % 4.4 %; Mean Corpuscular HGB Conc 34 g/dL (31-36); Mean Corpuscular Hemoglobin 31 pg (27-31); Mean Corpuscular Volume 91 fL (80-97); Platelet Count 235 10^3/uL (150-450); Red Blood Count 4.18 10^6 /uL (3.70-4.87); Red Cell Distribution Width 14 % (10-15); White Blood Count 16.3 10^3/uL (3.5-10.8)
[2019-05-06 09:59] LABS: Urine Appearance Cloudy; Urine Bacteria 1+ (Absent); Urine Bilirubin Negative (Negative); Urine Blood 3+ (Negative); Urine Color Yellow; Urine Glucose Negative (Negative); Urine Ketones Trace (Negative); Urine Nitrite Negative (Negative); Urine Protein Negative (Negative); Urine Red Blood Cell 2+(6-10/hpf) (Absent); Urine Squamous Epithelial Cell Present (Absent); Urine Urobilinogen Negative (Negative); Urine White Blood Cell 3+(>20/hpf) (Absent)
[2019-05-06] MEDS ORDERED: Morphine 4 MG/ML VIAL (1 ml) 4 MG/ML VIAL IV ONE (09:59)
[2019-05-06] MEDS ORDERED: Ondansetron INJ* 2 MG/ML VIAL IV ONE (09:59)
[2019-05-06] MEDS ORDERED: Ketorolac INJ* 30 MG/ML 1 ML VIAL IV PUSH ONE (09:59)
[2019-05-06] MEDS ORDERED: NS 0.9% 1000 ML** 1,000 ML IV ONE (10:00)
[2019-05-06 10:02] LABS: ALT 38 U/L (7-52); AST 17 U/L (13-39); Albumin 4.1 g/dL (3.2-5.2); Albumin/Globulin Ratio 1.3 (1-3); Alkaline Phosphatase 53 U/L (34-104); Anion Gap 8 mmol/L (2-11); BUN/Creatinine Ratio 11.1 (8-20); Blood Urea Nitrogen 7 mg/dL (6-24); CO2 Carbon Dioxide 24 mmol/L (22-32); Calcium 9.2 mg/dL (8.6-10.3); Chloride 102 mmol/L (101-111); EGFR African American 135.2 (>60); EGFR Non-African American 111.7 (>60); Globulin 3.2 g/dL (2-4); Glucose 128 mg/dL (70-100); Potassium 3.7 mmol/L (3.5-5.0); Sodium 134 mmol/L (135-145); Total Protein 7.3 g/dL (6.4-8.9)
--- NOTE | 2019-05-06 10:03 | ED ---
Back Pain - HPI Summary HPI Summary: Patient is a 28-year-old female who presents emergency department for left flank pain that started today. Patient states she started to feel poorly yesterday and today developed left flank pain. She has a history of kidney stones and has had lithotripsy and ureteral stents placed in the past. Patient notes nausea without vomiting. Symptoms are moderate in severity. No current modifying factors. - History of Current Complaint Chief Complaint: EDFlankPain Stated Complaint: LEFT FLANK/ABD PAIN PER PT Time Seen by Provider: 05/06/19 09:53 Hx Obtained From: Patient Hx Last Menstrual Period: 10/10/14 Pain Intensity: 9 - Allergies/Home Medications Allergies/Adverse Reactions: Allergies Allergy/AdvReac Type Severity Reaction Status Date / Time No Known Allergies Allergy Verified 05/06/19 09:03 Home Medications: Home Medications Ergocalciferol CAP* [Drisdol CAP*] 50,000 unit PO Q7D 05/06/19 [History Confirmed 05/06/19] Escitalopram * [Lexapro 10 mg (NF)] 10 mg PO DAILY 05/06/19 [History Confirmed 05/06/19] PMH/Surg Hx/FS Hx/Imm Hx Previously Healthy: Yes Endocrine/Hematology History: Denies: Hx Diabetes, Hx Thyroid Disease Cardiovascular History: Denies: Hx Hypertension Respiratory History: Denies: Hx Asthma, Hx Chronic Obstructive Pulmonary Disease (COPD) GI History: Denies: Hx Ulcer History: Reports: Hx Kidney Infection - kidney stone ablation, Hx Kidney Stones Sensory History: Denies: Hx Contacts or Glasses, Hx Hearing Aid Opthamlomology History: Denies: Hx Contacts or Glasses Psychiatric History: Reports: Hx Anxiety - Surgical History Surgery Procedure, Year, and Place: - January 08 Hx Anesthesia Reactions: No Infectious Disease History: No Infectious Disease History: Denies: Hx Clostridium Difficile, Hx Hepatitis, Hx Human Immunodeficiency Virus (HIV), Hx of Known/Suspected MRSA, Hx Shingles, Hx Tuberculosis, Hx Known/ Suspected VRE, Hx Known/Suspected VRSA, History Other Infectious Disease, Traveled Outside the [place] in Last 30 Days - Family History Known Family History: Positive: None, Diabetes, Other - Diverticulitis, Non- Contributory - Social History Occupation: Employed Full-time Lives: With Family Alcohol Use: None Substance Use Type: Reports: None Smoking Status (MU): Former Smoker Type: Cigarettes Have You Smoked in the Last Year: No Review of Systems Positive: Chills. Negative: Fever Cardiovascular: Negative Respiratory: Negative Positive: Abdominal Pain, Nausea Positive: flank pain All Other Systems Reviewed And Are Negative: Yes Physical Exam Triage Information Reviewed: Yes Vital Signs On Initial Exam: Initial Vitals Temp Pulse Resp BP Pulse Ox 98.4 F 89 18 130/95 98 05/06/19 09:01 05/06/19 09:01 05/06/19 09:01 05/06/19 09:01 05/06/19 09:01 Vital Signs Reviewed: Yes Appearance: Positive: Pain Distress - Pt. lying in bed on her right side. Appears in pain but nontoxic. Skin: Positive: Warm, Dry Head/Face: Positive: Normal Head/Face Inspection Eyes: Positive: Normal, EOMI Neck: Positive: Supple Respiratory/Lung Sounds: Positive: Clear to Auscultation, Breath Sounds Present Cardiovascular: Positive: Normal, RRR Abdomen Description: Positive: Other: - Left flank pain. Musculoskeletal: Positive: Normal, Strength/ROM Intact Psychiatric: Positive: Affect/Mood Appropriate Diagnostics - Vital Signs Vital Signs Temp Pulse Resp BP Pulse Ox 05/06/19 09:01 98.4 F 89 18 130/95 98 - Laboratory Lab Results: Lab Results 05/06/19 05/06/19 05/06/19 Range/Units 09:34 09:35 09:44 WBC 16.3 H (3.5-10.8) 10^3/uL RBC 4.18 (3.70-4.87) 10^6 /uL Hgb 12.8 (12.0-16.0) g/dL Hct 38 (35-47) % MCV 91 (80-97) fL MCH 31 (27-31) pg MCHC 34 (31-36) g/dL RDW 14 (10-15) % Plt Count 235 (150-450) 10^3/uL MPV 9.0 (7.4-10.4) fL Neut % (Auto) 89.5 % Lymph % (Auto) 4.4 % [place] % (Auto) 5.3 % Eos % (Auto) 0.4 % Baso % (Auto) 0.4 % Absolute Neuts (auto) 14.6 H (1.5-7.7) 10^3/ul Absolute Lymphs (auto) 0.7 L (1.0-4.8) 10^3/ul Absolute Monos (auto) 0.9 H (0-0.8) 10^3/ul Absolute Eos (auto) 0.1 (0-0.6) 10^3/ul Absolute Basos (auto) 0.1 (0-0.2) 10^3/ul Absolute Nucleated RBC 0.0 10^3/ul Nucleated RBC % 0.0 Sodium 134 L (135-145) mmol/L Potassium 3.7 (3.5-5.0) mmol/L Chloride 102 (101-111) mmol/L Carbon Dioxide 24 (22-32) mmol/L Anion Gap 8 (2-11) mmol/L BUN 7 (6-24) mg/dL Creatinine 0.63 (0.51-0.95) mg/dL Est GFR ( Amer) 135.2 (>60) Est GFR (Non-Af Amer) 111.7 (>60) BUN/Creatinine Ratio 11.1 (8-20) Glucose 128 H (70-100) mg/dL Calcium 9.2 (8.6-10.3) mg/dL Total Bilirubin 1.30 H (0.2-1.0) mg/dL AST 17 (13-39) U/L ALT 38 (7-52) U/L Alkaline Phosphatase 53 (34-104) U/L Total Protein 7.3 (6.4-8.9) g/dL Albumin 4.1 (3.2-5.2) g/dL Globulin 3.2 (2-4) g/dL Albumin/Globulin Ratio 1.3 (1-3) Beta HCG, Quant Pending Urine Color Yellow Urine Appearance Cloudy Urine pH 7.0 (5-9) Ur Specific [place] 1.010 (1.010-1.030) Urine Protein Negative (Negative) Urine Ketones Trace A (Negative) Urine Blood 3+ A (Negative) Urine Nitrate Negative (Negative) Urine Bilirubin Negative (Negative) Urine Urobilinogen Negative (Negative) Ur Leukocyte Esterase 3+ A (Negative) Urine WBC (Auto) 3+(>20/hpf) A (Absent) Urine RBC (Auto) 2+(6-10/hpf) A (Absent) Ur Squamous Epith Cells Present A (Absent) Urine Bacteria 1+ A (Absent) Urine Glucose Negative (Negative) Result Diagrams: 05/06/19 09:35 05/06/19 09:34 Lab Statement: Any lab studies that have been ordered have been reviewed, and results considered in the medical decision making process. Back Pain Course/Dx - Course Course Of Treatment: Pt. presenting with acute left flank pain. Afebrile. Pt. started on IV fluids and pain medication. CBC shows WBC of 16.3. U/A shows elevated RBCs, WBCs and bacteria, not a clean catch. U/S: IMPRESSION: LEFT NEPHROLITHIASIS WITH MILD HYDRONEPHROSIS. Concern for possible infected stone. Case discussed with Dr. Baugh who recommends cathed urine specimen and CT scan if cathed urine is infected. Cathed specimen still with WBCs. CT scan as below. CT: IMPRESSION: 1. BILATERAL NEPHROLITHIASIS, INCLUDING A LEFT UPJ STONE WITH ASSOCIATED LEFT-SIDED. HYDRONEPHROSIS. 2. HEPATOMEGALY WITH FATTY INFILTRATION OF THE LIVER. 3. CHOLELITHIASIS. . Discussed with Dr. Baugh who will take pt. to OR tonight for stent. He would like her admitted to hospitalist over night for obs. Discussed with Dr. Espinoza who accepts for admission. Pt.'s pain has been controlled in ER and she received IV rocephin. - Diagnoses Differential Diagnosis/HQI/PQRI: Positive: Renal Colic Provider Diagnoses: Urolithiasis, UTI (urinary tract infection) Discharge - Sign-Out/Discharge Documenting (check all that apply): Patient Departure Patient Received Moderate/Deep Sedation with Procedure: No - Discharge Plan Condition: Stable Disposition: ADMITTED TO [facility] Referrals: Karen Gamez NP [Primary Care Provider] - - Billing Disposition and Condition Condition: STABLE Disposition: Admitted to [facility]
[2019-05-06 10:18] LABS: HCG Pregnancy < 0.60 mIU/mL
[2019-05-06] MEDS ORDERED: HYDROmorphone INJ1* 1 MG/ML SYRINGE IV ONE ×2 (10:36→14:50)
[2019-05-06] MEDS ORDERED: ED cefTRIAXone 1 GM/50 ML 1 GM/50 ML PREMIX.SET IVPB ONE (10:37)
[2019-05-06 13:12] LABS: Urine Appearance Clear; Urine Bacteria Absent (Absent); Urine Bilirubin Negative (Negative); Urine Blood 3+ (Negative); Urine Color Straw; Urine Glucose Negative (Negative); Urine Ketones Negative (Negative); Urine Nitrite Negative (Negative); Urine Protein Negative (Negative); Urine Red Blood Cell Absent (Absent); Urine Specific Gravity 1.002 (1.010-1.030); Urine Squamous Epithelial Cell Present (Absent); Urine Urobilinogen Negative (Negative); Urine White Blood Cell 3+(>20/hpf) (Absent)
[2019-05-06] MEDS ORDERED: Morphine INJ* 2 MG/ML 1 ML SYRINGE (TWO MG - NEW SYRINGE VERSION) IV PRN (16:42)
[2019-05-06] MEDS ORDERED: oxyCODONE/Acetamin 5/325 MG* TAB PO PRN ×4 (16:42→21:17)
[2019-05-06] MEDS ORDERED: NS 0.9% 1000 ML** 1,000 ML IV SCH (16:45)
[2019-05-06] MEDS ORDERED: Famotidine IV* 10 MG/ML 2 ML (20 mg) ONE (17:22)
[2019-05-06] MEDS ORDERED: fentaNYL* 50 MCG/ML 2 ML VIAL (100 MCG VIAL) IV PRN (17:28)
[2019-05-06] MEDS ORDERED: Naloxone* 0.4 MG/ML 1 ML VIAL IV PRN (17:28)
[2019-05-06] MEDS ORDERED: DiMENhydriNATE IV* 50 MG/ML VIAL IV PUSH PRN (17:28)
[2019-05-06] MEDS ORDERED: Buffered Lidocaine 1% SYRIN* 1 ML/SYRINGE INTRADERM ONE (17:28)
[2019-05-06] MEDS ORDERED: HYDROcodone/ACETAMIN 5-325 MG* 1 TAB PO PRN (17:28)
[2019-05-06] MEDS ORDERED: Famotidine IV* 10 MG/ML 2 ML (20 mg) IV ONE (17:28)
[2019-05-06] MEDS ORDERED: Lactated Ringers 1000 ML Bag* 1,000 ML IV SCH (18:00)
[2019-05-06] MEDS ORDERED: fentaNYL* 50 MCG/ML 2 ML VIAL (100 MCG VIAL) ONE (18:00)
[2019-05-06] MEDS ORDERED: Midazolam* 1 MG/ML 5 ML VIAL (5 MG) ONE (18:00)
[2019-05-06] MEDS ORDERED: Propofol* 10 MG/ML 20 ML BTL ONE (18:01)
[2019-05-06] MEDS ORDERED: Lidocaine 2% PF * 5 ML VIAL ONE (18:01)
[2019-05-06] MEDS ORDERED: cefTRIAXone(*) 1 GM ADVAN/BAG ONE (18:07)
[2019-05-06] MEDS ORDERED: Iohexol 180 (CONTRAST) 10 ML SDV IV ONE (18:32)
[2019-05-06] MEDS ORDERED: Ondansetron INJ* 2 MG/ML VIAL ONE (18:40)
--- NOTE | 2019-05-06 20:53 | HP ---
CC: Karen Gamez NP; Dr. Baugh * HISTORY AND PHYSICAL: DATE OF ADMISSION: 05/06/19 PRIMARY CARE PROVIDER: Karen Gamez NP. OTHER PROVIDER: Dr. Baugh. ATTENDING PHYSICIAN: Dr. Marysol Espinoza * (dictated by SANIA Winters) CHIEF COMPLAINT: 1. Lower back pain. 2. Abdominal pain. HISTORY OF PRESENT ILLNESS: Ms. Horton is a 28-year-old female with past medical history of left nephrolithiasis with associated hydronephrosis requiring stenting in 2015 and 2018, who presented to the ER today with complaints of left lower back pain and left lower quadrant pain. She notes that the pain is constant but goes from dull to sharp and then back down to dull. She describes it as "like labor." She notes that the pain is relieved with pain medications and lying on the left side. Prior to medication, she was in 9/10 pain, currently she is 0/10 pain. She notes that the pain occasionally radiates to the right abdomen. She complains of associated nausea and vomiting. She states that this all began yesterday. She denies chest pain, shortness of breath, cough, fever, diarrhea, pain in the extremities, myalgias or arthralgias. The patient is noted to have a history of nephrolithiasis that has required stenting x2 in the past, one episode was in 2015, the other episode of was in 2018. She does not remember what side the first episode was on but the second episode was on the left side and required stenting. While in the ER, the patient received a full workup including lab workup which revealed leukocytosis, elevated glucose, elevated total bilirubin, as well as urinalysis that showed 3+ leukocyte esterase, 1+ bacteria. Renal ultrasound was performed and showed left nephrolithiasis with mild hydronephrosis. CT of the abdomen and pelvis showed bilateral nephrolithiasis, left UPJ stone measuring 0.8 cm with left hydronephrosis, also noted is cholelithiasis, hepatomegaly with fatty infiltrate. The patient was given ceftriaxone. She was also given Dilaudid, Ketoralac, morphine for pain management. Zofran was administered for nausea. 1 L normal saline bolus was also given. Hospitalist team was asked to evaluate the patient for admission. PAST MEDICAL HISTORY: 1. History of nephrolithiasis with hydronephrosis. 2. Depression. 3. Anxiety. PAST SURGICAL HISTORY: , ureteral stents x2. HOME MEDICATIONS: 1. Acetaminophen 650 mg p.o. q.6 hours p.r.n. 2. Escitalopram 10 mg p.o. daily. 3. Ibuprofen 600 mg p.o. q.6 hours p.r.n. 4. Xanax 0.25 mg p.o. p.r.n. DRUG ALLERGIES: No known drug allergies. FAMILY HISTORY: Father with hypertension, diabetes. Paternal grandmother, esophageal cancer. Family history negative for CVA, heart disease. SOCIAL HISTORY: The patient quit smoking at the age of 21, prior to that she smoked less than a pack per day for approximately 10 years. She uses alcohol socially but not daily. She does not use any other drugs. 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 She lives at home with her 3-year-old son. In the event that she is unable to make her own medical decision, she has appointed her father, Fernando Horton, to be her surrogate decision maker. REVIEW OF SYSTEMS: A 10-point review of systems has been performed, and all the pertinent positives and negatives are in the HPI. All other systems are negative. PHYSICAL EXAMINATION GENERAL: Ms. Horton is a well-developed, well-nourished, obese young white female, who is lying on her left side in bed. She appears comfortable and in no acute distress. She appears her stated age. VITAL SIGNS: Temperature 98.4 temporal, heart rate 60, respiratory rate 16, oxygen saturation 99% on 2 L O2, blood pressure 109/52. HEENT: Visual gomez grossly intact. PERRL. EOMI. Nonicteric sclerae. Hearing grossly intact. Oral mucous membranes are moist without lesions. The pharynx is clear. RESPIRATORY: Symmetrical chest expansion without use of accessory muscles. Lungs are clear to auscultation bilaterally without rhonchi, wheezes or rubs. CARDIOVASCULAR: Regular rate and rhythm with S1, S2 present. There are no murmurs, rubs, clicks or gallops. There is no JVD. Radial and pedal pulses are palpable. There is no peripheral edema. ABDOMEN: Obese. Bowel sounds noted in all quadrants. The abdomen is mildly tender to palpation in the left lower quadrant. The patient has mildly positive CVA tenderness on the left. Negative on the right. MUSCULOSKELETAL: Full range of motion without pain or deformities. NEURO: The patient is awake. She is alert and oriented x3 with cranial nerves grossly intact. DIAGNOSTIC STUDIES/LAB DATA: WBC 16.3. Sodium 134, glucose 128, bilirubin 1.30. Urinalysis; 3+ blood, 3+ leukocyte esterase, 3+ urine white blood cells, 1 + bacteria. Left renal ultrasound, impression: Left nephrolithiasis with mild hydronephrosis. CT abdomen and pelvis, impression: Bilateral nephrolithiasis, including a left UPJ stone with associated left-sided hydronephrosis. Hepatomegaly with fatty infiltrate of the liver. Cholelithiasis. ASSESSMENT AND PLAN: Ms. Horton is a 28-year-old female with past medical history of nephrolithiasis and hydronephrosis in the past, who presented to the ER today with complaints of left lower back pain, left lower quadrant pain that is described as colicky in nature and was found to have a left nephrolithiasis with hydronephrosis. The patient will be admitted observation for: 1. Left nephrolithiasis with associated hydronephrosis. The patient has been given 1 dose of ceftriaxone in the ER. Her pain has been well controlled with pain medications. Dr. Baugh has been notified and plans for stenting of the ureter today. She will be admitted observation after this. We will continue pain management with Ketoralac, Percocet and morphine. We will continue ceftriaxone. IV hydration has been ordered at a rate of 125 cc/h. 2. Depression. Continue escitalopram 10 mg p.o. daily. 3. Anxiety. The patient has a prescription for Xanax 0.25 which she uses as needed. The patient states she does not use this daily. We will hold off on this medication at this point, due to use of narcotics. The patient can resume this medication once discharged. 4. DVT prophylaxis: According DVT risk assessment, the patient scores 0, we will not place her on chemo prophylaxis at this point. SCDs have been ordered. 5. Code status: Full code. TIME SPENT: Approximately 60 minutes was spent on this admission, greater than half that time was spent with the patient obtaining history, performing a physical, and reviewing the plan of care. The case has been reviewed with my attending, Dr. Espinoza, who is in agreement with the plan of care. NAKUL VENCES, SANIA [id number]/[facility] #: [id number]
[2019-05-06] MEDS: Lactated Ringers 1000 ML Bag* 1,000 ML IV SCH (21:42)
--- NOTE | 2019-05-06 23:08 | OP ---
DATE OF OPERATION: 05/06/19 - ROOM #335 DATE OF : 88 SURGEON: Jose Baugh MD ANESTHESIOLOGIST: Dr. Hiram Phelps. ANESTHESIA: General. PRE-OP DIAGNOSES: 1. Proximal left ureteral calculus (7 mm). 2. Urinary tract infection. POST-OP DIAGNOSES: 1. Proximal left ureteral calculus (7 mm). 2. Urinary tract infection. OPERATIVE PROCEDURE: 1. Cystoscopy. 2. Left retrograde pyelography. 3. Left ureteral stent insertion (6 Turkish). INDICATIONS FOR PROCEDURE: Ms. Horton is a 28-year-old white female who is a known stone former and who presented to the emergency room today with symptoms of left renal colic. She also had frequency, urgency, and burning on urination. Non-contrast CT of the abdomen and pelvis showed a 7 to 8 mm calculus in the proximal left ureter associated with mild left hydronephrosis. Urinalysis was positive for infection and her white count was 16,000. She was afebrile. After obtaining urine culture, the patient was started on IV ceftriaxone and is taken to the operating room on an urgent basis for insertion of left ureteral stent in preparation for definitive treatment of the stone. PATHOLOGY AT CYSTOSCOPY: The bladder mucosa looked normal. There were no changes of cystitis. There was a cystocele noted. At fluoroscopy, radiopaque calculus was not clearly seen along the path of the ureter. Upon left retrograde pyelography, there was only minimal fullness of the left collecting system. DESCRIPTION OF PROCEDURE: After successful general anesthesia, the patient was placed in the lithotomy position and was prepped and draped for a cystoscopy. Cystoscopy was performed. The bladder was carefully inspected and the above findings were noted. Under fluoroscopy guidance a fixable tip guidewire was introduced inside the left orifice and positioned in the area of the renal pelvis. A 5-Turkish open- ended catheter was fed on top of the guidewire and then retrograde pyelography was performed demonstrating the collecting system. A size 6-Turkish stent was then placed with the proximal end coiling in the upper pole calyx and the distal end coiling inside the bladder. There was good drainage of contrast from the kidney and no extravasation. The patient tolerated the procedure well and left the operating room in good condition. The plan is to continue on intravenous antibiotics and observe the patient overnight. A KUB will be obtained in the morning. Decision will be made regarding the definitive treatment of the stone. [id number]/[facility] #: [id number] MTDD
[2019-05-07] MEDS: Ketorolac INJ* 30 MG/ML 1 ML VIAL IV PUSH PRN ×2 (02:09→11:26)
[2019-05-07] MEDS: Lactated Ringers 1000 ML Bag* 1,000 ML IV SCH (05:00)
[2019-05-07] MEDS ORDERED: cefTRIAXone(*) 1 GM in NS 0.9% 50 ML* 50 ML IVPB SCH (06:30)
[2019-05-07 06:31] LABS: BUN/Creatinine Ratio 9.4 (8-20); Calcium 8.4 mg/dL (8.6-10.3); EGFR Non-African American 136.4 (>60); Potassium 3.4 mmol/L (3.5-5.0)
[2019-05-07 08:57] LABS: ABS Basophils 0.1 10^3/ul (0-0.2); ABS Eosinophils 0.1 10^3/ul (0-0.6); ABS Monocytes 1.1 10^3/ul (0-0.8); ABS Neutrophils 8.5 10^3/ul (1.5-7.7); Hematocrit 34 % (35-47); Hemoglobin 11.5 g/dL (12.0-16.0); Lymphocyte % 9.5 %; Mean Corpuscular HGB Conc 34 g/dL (31-36); Mean Corpuscular Hemoglobin 31 pg (27-31); Mean Corpuscular Volume 92 fL (80-97); Mean Platelet Volume 8.8 fL (7.4-10.4); Platelet Count 172 10^3/uL (150-450); Red Blood Count 3.67 10^6 /uL (3.70-4.87); Red Cell Distribution Width 14 % (10-15); White Blood Count 10.8 10^3/uL (3.5-10.8)
[2019-05-07] MEDS ORDERED: Escitalopram * 10 MG TAB PO SCH (09:00)
[2019-05-07 11:09] VITALS: BP 115/56
--- NOTE | 2019-05-07 11:26 | PN ---
Subjective Date of Service: 05/07/19 Interval History: Patient had stenting overnight. She managed to pee without problems after surgery. No fever, VS stable. WBC is trending down. She complained of headache from sleeplessness and stress overnight. Objective Active Medications: Escitalopram Oxalate (Lexapro *) 10 mg PO DAILY [facility] Last Admin: 05/07/19 07:47 Dose: 10 mg Sodium Chloride (Ns 0.9% 1000 Ml) 1,000 mls @ 125 mls/hr IV PER RATE [facility] Ceftriaxone Sodium 1 gm/ (Sodium Chloride) 50 mls @ 100 mls/hr IVPB Q12H [facility] Last Admin: 05/07/19 06:19 Dose: 100 mls/hr Lactated Ringer's (Lactated Ringers 1000 Ml Bag*) 1,000 mls @ 150 mls/hr IV PER RATE [facility] Last Admin: 05/07/19 05:00 Dose: 150 mls/hr Ketorolac Tromethamine (Toradol Inj*) 30 mg IV PUSH Q6H PRN PRN Reason: Pain- mild Last Admin: 05/07/19 02:09 Dose: 30 mg Morphine Sulfate (Morphine Inj (Syringe))*) 2 mg IV Q4H PRN PRN Reason: Pain- severe Last Admin: 05/06/19 22:22 Dose: 2 mg Oxycodone/Acetaminophen (Percocet 5/325 Tab*) 1 tab PO Q4H PRN PRN Reason: Pain- moderate Oxycodone/Acetaminophen (Percocet 5/325 Tab*) 2 tab PO Q4H PRN PRN Reason: PAIN Last Admin: 05/07/19 07:47 Dose: 2 tab Vital Signs - 8 hr 05/07/19 05/07/19 05/07/19 03:41 07:14 07:47 Temperature 98.6 F 98.8 F Pulse Rate 85 84 Respiratory 17 16 16 Rate Blood Pressure 113/63 115/68 (mmHg) O2 Sat by Pulse 96 92 Oximetry 05/07/19 05/07/19 08:00 11:08 Temperature 99.6 F Pulse Rate 82 Respiratory 16 16 Rate Blood Pressure 115/56 (mmHg) O2 Sat by Pulse 92 Oximetry Oxygen Devices in Use Now: Nasal Cannula Exam: Lying on the bed comfortably. Heart S1S2, no murmur Lung clear Abdomen soft non tender Kidney: renal punch positive on left side Calves: soft Result Diagrams: 05/07/19 08:48 05/07/19 05:49 Additional Lab and Data: Lab Results 05/06/19 05/06/19 05/06/19 Range/Units 09:34 09:35 09:44 WBC 16.3 H (3.5-10.8) 10^3/uL RBC 4.18 (3.70-4.87) 10^6 /uL Hgb 12.8 (12.0-16.0) g/dL Hct 38 (35-47) % MCV 91 (80-97) fL MCH 31 (27-31) pg MCHC 34 (31-36) g/dL RDW 14 (10-15) % Plt Count 235 (150-450) 10^3/uL MPV 9.0 (7.4-10.4) fL Neut % (Auto) 89.5 % Lymph % (Auto) 4.4 % [place] % (Auto) 5.3 % Eos % (Auto) 0.4 % Baso % (Auto) 0.4 % Absolute Neuts (auto) 14.6 H (1.5-7.7) 10^3/ul Absolute Lymphs (auto) 0.7 L (1.0-4.8) 10^3/ul Absolute Monos (auto) 0.9 H (0-0.8) 10^3/ul Absolute Eos (auto) 0.1 (0-0.6) 10^3/ul Absolute Basos (auto) 0.1 (0-0.2) 10^3/ul Absolute Nucleated RBC 0.0 10^3/ul Nucleated RBC % 0.0 Sodium 134 L (135-145) mmol/L Potassium 3.7 (3.5-5.0) mmol/L Chloride 102 (101-111) mmol/L Carbon Dioxide 24 (22-32) mmol/L Anion Gap 8 (2-11) mmol/L BUN 7 (6-24) mg/dL Creatinine 0.63 (0.51-0.95) mg/dL Est GFR ( Amer) 135.2 (>60) Est GFR (Non-Af Amer) 111.7 (>60) BUN/Creatinine Ratio 11.1 (8-20) Glucose 128 H (70-100) mg/dL Calcium 9.2 (8.6-10.3) mg/dL Total Bilirubin 1.30 H (0.2-1.0) mg/dL AST 17 (13-39) U/L ALT 38 (7-52) U/L Alkaline Phosphatase 53 (34-104) U/L Total Protein 7.3 (6.4-8.9) g/dL Albumin 4.1 (3.2-5.2) g/dL Globulin 3.2 (2-4) g/dL Albumin/Globulin Ratio 1.3 (1-3) Beta HCG, Quant Pending Urine Color Yellow Urine Appearance Cloudy Urine pH 7.0 (5-9) Ur Specific [place] 1.010 (1.010-1.030) Urine Protein Negative (Negative) Urine Ketones Trace A (Negative) Urine Blood 3+ A (Negative) Urine Nitrate Negative (Negative) Urine Bilirubin Negative (Negative) Urine Urobilinogen Negative (Negative) Ur Leukocyte Esterase 3+ A (Negative) Urine WBC (Auto) 3+(>20/hpf) A (Absent) Urine RBC (Auto) 2+(6-10/hpf) A (Absent) Ur Squamous Epith Cells Present A (Absent) Urine Bacteria 1+ A (Absent) Urine Glucose Negative (Negative) Assess/Plan/Problems-Billing Assessment: 28 y/o female with history of nephroliathiasis with hydronephrosis s/p stents, depression, anxiety, presented with acute onset of left lower back and lower quadrant pain. CT revealed left UPJ stone 0.8cm with hydronephrosis, which was stented overnight. Her inflammatory picture in the blood work, pyuria with klebsiella growing in culture, all these confirmed the diagnosis of obstrcuting kidney stone causing pyelonephritis. She was put on cipro inpatient , and will require antibiotics for 14 days in total. - Patient Problems (1) Pyelonephritis Current Visit: Yes Status: Acute Code(s): N12 - TUBULO-INTERSTITIAL NEPHRITIS, NOT SPCF ACUTE OR CHRONIC SNOMED Code(s): 76293607 (2) Anxiety Current Visit: No Status: Acute Priority: High Code(s): F41.9 - ANXIETY DISORDER, UNSPECIFIED SNOMED Code(s): 80003331 Comment: continue with supprotive care, (3) Hydronephrosis Current Visit: No Status: Acute Priority: High Code(s): N13.30 - UNSPECIFIED HYDRONEPHROSIS SNOMED Code(s): 83484955 Comment: S/p stent pain well controlled and improved (4) Nephrolithiasis Current Visit: No Status: Acute Priority: High Code(s): N20.0 - CALCULUS OF KIDNEY SNOMED Code(s): 80351933 Comment: S/P left ureteral stent to f/u with urology (5) Full code status Current Visit: No Status: Acute Priority: High Code(s): Z78.9 - OTHER SPECIFIED HEALTH STATUS SNOMED Code(s): 964593046 Comment: (6) DVT prophylaxis Current Visit: No Status: Acute Priority: High Code(s): EDD7860 - SNOMED Code(s): 630550128 Comment: - scd Attestation Documenting Resident: Juliane Dunn Supervising Physician: Matilde Pereira Attestation: This service has been performed in part by a resident under the direction of a teaching physician.I, Matilde Pereira, performed the service, or was physically present during the critical, or castro portions of the service, furnished by the resident. I participated in the management of the patient.
--- NOTE | 2019-05-07 11:38 | PN ---
Hospitalist Progress Note Date of Service: 05/07/19 Attending Assessment and Plan I have reviewed subjective nad objective of residents note of which I agree with and supervised 28F recurrent nephrolithiasis, depression and anxiety presented with obstructing nephrolothiasis and pyelonephritis of L kideny, POD # 1 s/p stenting of L ureter #Pyelo: Tx of rtotal of 14 days, Klebsiella in urine #L nephrolithiasis, obsturcting: s/p stenting, will need uro gollow up for recurrent nephrolithiasis, voiding and downtrending luekocytosis #Depressoin: Conitnue home meds #DVT: NA, d/c #Code: full #Dispo: DC to home
--- NOTE | 2019-05-07 13:04 | DS ---
CC: Karen Gamez MD; Dr. Baugh DISCHARGE SUMMARY: DATE OF ADMISSION: 05/06/19 DATE OF DISCHARGE: 05/07/19 PRIMARY CARE PROVIDER: Karen Gamez MD. OTHER PROVIDER: Dr. Baugh. DISPOSITION AT THE TIME OF DISCHARGE: Stable. Discharged to home. PRIMARY DIAGNOSES: 1. Pyelonephritis. 2. Hydronephrosis. 3. Nephrolithiasis. SECONDARY DIAGNOSES: 1. Depression. 2. Anxiety. 3. Obesity. 4. History of recurrent nephrolithiasis. MEDICATIONS AT THE TIME OF DISCHARGE: 1. Ciprofloxacin 500 mg p.o. b.i.d. for an additional 13 days status post discharge. 2. Acetaminophen 650 mg p.o. q.6 hours p.r.n. 3. Ibuprofen 600 mg p.o. q.6 hours. 4. Citalopram 10 mg p.o. daily. 5. Vitamin D 50,000 units p.o. q.7 days. Medications changes on this admission are the addition of ciprofloxacin 500 mg p.o. b.i.d. for an add itional 13 days status post discharge. HOSPITAL COURSE AND HISTORY OF PRESENT ILLNESS: As follows: A 28-year-old female with the above pas t medical history presented to the emergency room on 05/06/19 evening with complaint of left flank, l ower back and abdominal pain. She said the pain was constant with a colicky nature and had been occu rring for 24 hours. She did have history of nephrolithiasis in 2016 and in 2018, requiring stenting in the past and was well known to the urology service. In the ER, the patient received a workup, whi ch showed leukocytosis in the urine and bacteria as well as leukocytosis in the blood. A renal ultra sound was performed and showed left nephrolithiasis with mild hydronephrosis and a CT abdomen and pel vis showed bilateral nephrolithiasis, but a left UPJ stent measuring 0.8 cm with left hydronephrosis. She is also noted to have cholelithiasis and hepatomegaly with fatty infiltrate. She was given ceftr iaxone and urology was consulted, who elected to admit the patient under the hospitalist service for further workup. Her hospital course by problems is as follows: 1. Pyelonephritis secondary to left nephrolithiasis and hydronephrosis. The patient was given antib iotics and pain control, and she was taken to the operating room on 05/06/19 evening for stone retrie jimmie and stenting of the ureter, which was completed successfully. On hospital day 2, the patient's p ain had improved. She had minor dysuria, but no further fevers. White blood cell count improved and the patient was stable for discharge. She is voiding freely with minimal pain control. 2. Depression, anxiety. Her home medications were continued with the exception of Xanax, although s he can be resumed on this on discharge. 3. Incidental findings of hepatomegaly and fatty infiltrate of the liver. This can be followed with primary care. 3. Recurrent nephrolithiasis. The patient needs followup with urology to determine etiology of recu rrent stones and stone analysis can be done as an outpatient. On the day of discharge, the patient i s ambulating, voiding freely, tolerating diet with normal vital signs, labs, and other physical exam findings. LABS AND STUDIES DONE DURING THIS HOSPITALIZATION: Labs on day of discharge: White blood cell count 10.8, hemoglobin 11.5, hematocrit 34, platelets 172. BMP on 05/07/19 at 4 a.m. shows unremarkable BM P with the exception of minor hyperkalemia at 3.4. Urine culture ultimately grew Klebsiella, which c ultures have not been determined at this time, although responding well to ceftriaxone and infers greg t she will respond well to fluoroquinolones. Imaging done during this hospitalization includes abdomen and pelvis CT, which showed left UPJ stone, hydronephrosis, and hepatomegaly. Renal ultrasound showed left nephrolithiasis and mild hydronephro sis. Abdominal radiograph done on 05/07/19 showed stent in left side of abdomen in place, 3 mm calcu raúl in the right kidney; nonobstructive and 05/06/19 retrograde pyelogram was done that aided in the placement of left stent. Procedures done on 05/06/19 included stent placement in left ureter. ITEMS TO FOLLOW UP STATUS POST D ISCHARGE: 1. Recurrent nephrolithiasis. Again, stone analysis and referral to urology should be considered fo r recurrent nephrolithiasis; this is third in 3 years. 2. Pyelonephritis. The patient should be maintained on antibiotics for an additional 13 days status post discharge for a total of 14 days. DISCHARGE INSTRUCTIONS: The patient was counseled on when to return to hospital - fevers, worsening pain, dysuria, or any symptoms. She plans to follow up with primary care. She has requested 1 day o ff for work and that was provided for her on discharge. TIME SPENT: Thirty minutes were spent on the planning of this discharge, with more than half of that spent directly at the bedside with the patient providing direct patient care. If there are any ques tions about the care provided during this hospitalization, please do not hesitate to reach out and co ntact the hospitalist team. [id number]/[facility] #: [id number]
== END 2019-05-07 13:30 | disposition home or self-care (01) ==
LOC: ED 08:58 → SSU 19:04
PROVIDERS: ADMIT Physician Assistant Medical; ATTEND Internal Medicine
PROC: BT1FZZZ Fluoroscopy of Left Kidney, Ureter and Bladder (ICD-10-PCS; principal; 2019-05-06 17:45)
DX: N13.6 Pyonephrosis (principal); Z87.442 Personal history of urinary calculi; F32.9 Major depressive disorder, single episode, unspecified; F41.9 Anxiety disorder, unspecified; Z79.899 Other long term (current) drug therapy; Z87.891 Personal history of nicotine dependence
CPT/HCPCS: 36415; 74018; 74176; 74420; 76775; 80048; 80053; 81003; 81015; 84702; 85025; 87077; 87086; 87186; 96365; 96366; 96375; 96376; 99285; A9270-GY; C1876; G0378; J0696; J1170; J1885; J2250; J2270; J2405; J2704; J3010

== ENCOUNTER 2019-05-07 19:57 | Emergency (ER) | payer BC ==
[2019-05-07] MEDS ORDERED: Ketorolac INJ* 30 MG/ML 1 ML VIAL IV ONE (21:42)
[2019-05-07] MEDS ORDERED: Metoclopramide IV* 5 MG/ML 2 ML VIAL IV ONE (21:42)
[2019-05-07] MEDS ORDERED: NS 0.9% 1000 ML** 1,000 ML IV ONE (21:42)
[2019-05-07] MEDS ORDERED: diPHENhydraMINE IV* 50 MG/ML 1 ml VIAL (BENADRYL) IV ONE (21:42)
--- NOTE | 2019-05-07 21:43 | ED ---
Headache - HPI Summary HPI Summary: Patient complains of headache starting this morning with progressive pain, associated nausea, photosensitivity. Headache described as diffuse, sensation of pressure. Denies trauma, fever, neck pain, cough, sore throat, CP, SOB, N/V/ D, change in BM. History of discharge today from [facility] for 8 mm kidney stone and pyelonephritis. Complains of ongoing left side pain status post lithotripsy with no increase in pain since discharge. Patient received IV antibiotics during admission and is currently taking by mouth Cipro. Denies medical history. - History Of Current Complaint Chief Complaint: EDGeneral Stated Complaint: FEVER/CONFUSED/HEADACHE PER PT Time Seen by Provider: 05/07/19 21:24 Hx Obtained From: Patient Hx Last Menstrual Period: 10/10/14 Onset/Duration: Gradual Onset, Started hours ago Initially Headache Was: Moderate Currently Pain Is: Moderate Timing: Constant, Hours Character: Pressure Location of Headache: Diffuse Aggravating Factor: Bright Lights Allevating Factors: Nothing Associated Signs And Symptoms: Nausea - Allergies/Home Medications Allergies/Adverse Reactions: Allergies Allergy/AdvReac Type Severity Reaction Status Date / Time No Known Allergies Allergy Verified 05/07/19 20:05 PMH/Surg Hx/FS Hx/Imm Hx Endocrine/Hematology History: Denies: Hx Diabetes, Hx Thyroid Disease Cardiovascular History: Denies: Hx Hypertension Respiratory History: Denies: Hx Asthma, Hx Chronic Obstructive Pulmonary Disease (COPD) GI History: Denies: Hx Ulcer History: Reports: Hx Kidney Infection - kidney stone ablation, Hx Kidney Stones Sensory History: Denies: Hx Contacts or Glasses, Hx Hearing Aid Opthamlomology History: Denies: Hx Contacts or Glasses EENT History: Denies: Hx Deafness Neurological History: Denies: Hx Developmental Delay Psychiatric History: Reports: Hx Anxiety - Surgical History Surgery Procedure, Year, and Place: - January 09 2016. ureter stents Hx Anesthesia Reactions: No Infectious Disease History: No Infectious Disease History: Denies: Hx Clostridium Difficile, Hx Hepatitis, Hx Human Immunodeficiency Virus (HIV), Hx of Known/Suspected MRSA, Hx Shingles, Hx Tuberculosis, Hx Known/ Suspected VRE, Hx Known/Suspected VRSA, History Other Infectious Disease, Traveled Outside the [place] in Last 30 Days - Family History Known Family History: Positive: None, Diabetes, Other - Diverticulitis, Non- Contributory - Social History Alcohol Use: Rare Substance Use Type: Reports: None Smoking Status (MU): Former Smoker Type: Cigarettes Have You Smoked in the Last Year: No Review of Systems Constitutional: Negative Positive: Photophobia ENT: Negative Cardiovascular: Negative Respiratory: Negative Positive: Abdominal Pain Genitourinary: Negative Musculoskeletal: Negative Skin: Negative Positive: Headache Psychological: Normal All Other Systems Reviewed And Are Negative: Yes Physical Exam - Summary Physical Exam Summary: Neuro exam normal. Neck supple. Triage Information Reviewed: Yes Vital Signs On Initial Exam: Initial Vitals Temp Pulse Resp BP Pulse Ox 99.5 F 110 16 130/101 97 05/07/19 20:00 05/07/19 20:00 05/07/19 20:00 05/07/19 20:00 05/07/19 20:00 Vital Signs Reviewed: Yes Appearance: Positive: Well-Appearing Skin: Positive: Warm Head/Face: Positive: Normal Head/Face Inspection Eyes: Positive: Normal ENT: Positive: Normal ENT inspection Neck: Positive: Supple Respiratory/Lung Sounds: Positive: Clear to Auscultation Cardiovascular: Positive: Normal Abdomen Description: Positive: Nontender Musculoskeletal: Positive: Normal Neurological: Positive: Normal Psychiatric: Positive: Normal AVPU Assessment: Alert - Nikki Coma Scale Best Eye Response: 4 - Spontaneous Best Motor Response: 6 - Obeys Commands Best Verbal Response: 5 - Oriented Coma Scale Total: 15 Diagnostics - Vital Signs Vital Signs Temp Pulse Resp BP Pulse Ox 05/07/19 21:31 100 11 96 05/07/19 21:29 105 138/89 96 05/07/19 20:00 99.5 F 110 16 130/101 97 - Laboratory Result Diagrams: 05/07/19 21:52 05/07/19 21:52 Lab Statement: Any lab studies that have been ordered have been reviewed, and results considered in the medical decision making process. Headache Course/Dx - Course Course Of Treatment: Patient complains of headache starting this morning with progressive pain, associated nausea, photosensitivity. Headache described as diffuse, sensation of pressure. Denies trauma, fever, neck pain, cough, sore throat, CP, SOB, N/V/D, change in BM. History of discharge today from [facility] for 8 mm kidney stone and pyelonephritis. Complains of ongoing left side pain status post lithotripsy with no increase in pain since discharge. Patient received IV antibiotics during admission and is currently taking by mouth Cipro. Denies medical history. Vital signs within normal limits. WBC 12.0. CRP 168. Urine slightly improved from prior UA. Labs otherwise unremarkable. Headache improves from 07/16-11/16 with migraine cocktail. Patient advised to have low threshold for returning to the ED for any concerning symptoms given recent history. Patient understands and approved plan. - Diagnoses Provider Diagnoses: Headache Discharge - Sign-Out/Discharge Documenting (check all that apply): Patient Departure Patient Received Moderate/Deep Sedation with Procedure: No - Discharge Plan Condition: Stable Disposition: HOME Patient Education Materials: Acute Headache (ED) Referrals: Karen Gamez NP [Primary Care Provider] - Additional Instructions: Follow-up with primary care. Return to the ED for any new or worsening symptoms. - Billing Disposition and Condition Condition: STABLE Disposition: Home
[2019-05-07 22:00] LABS: Urine Appearance Cloudy; Urine Bacteria Absent (Absent); Urine Bilirubin Negative (Negative); Urine Blood 3+ (Negative); Urine Color Yellow; Urine Glucose Negative (Negative); Urine Ketones 1+ (Negative); Urine Nitrite Negative (Negative); Urine Protein 1+(30 mg/dL) (Negative); Urine Red Blood Cell 3+(>10/hpf) (Absent); Urine Specific Gravity 1.009 (1.010-1.030); Urine Squamous Epithelial Cell Present (Absent); Urine Urobilinogen Negative (Negative); Urine White Blood Cell 2+(11-20/hpf) (Absent)
[2019-05-07 22:06] LABS: ABS Lymphocytes 0.5 10^3/ul (1.0-4.8); ABS Neutrophils 10.5 10^3/ul (1.5-7.7); Eosinophil % 0.1 %; Hematocrit 36 % (35-47); Hemoglobin 12.2 g/dL (12.0-16.0); Lymphocyte % 4.1 %; Mean Corpuscular HGB Conc 34 g/dL (31-36); Mean Corpuscular Hemoglobin 31 pg (27-31); Mean Corpuscular Volume 92 fL (80-97); Platelet Count 215 10^3/uL (150-450); Red Cell Distribution Width 14 % (10-15)
[2019-05-07 22:20] LABS: Albumin 3.7 g/dL (3.2-5.2); Albumin/Globulin Ratio 1.1 (1-3); BUN/Creatinine Ratio 10.6 (8-20); C Reactive Protein 168.17 mg/L (<8.01); Calcium 8.9 mg/dL (8.6-10.3); EGFR African American 128.1 (>60); EGFR Non-African American 105.9 (>60); Globulin 3.3 g/dL (2-4); Potassium 3.5 mmol/L (3.5-5.0); Total Bilirubin 0.9 mg/dL (0.2-1.0)
[2019-05-08 00:23] VITALS: BP 128/82
== END 2019-05-08 00:22 | disposition home or self-care (01) ==
LOC: ED 19:57
DX: R51 Headache (principal); Z87.891 Personal history of nicotine dependence; R10.9 Unspecified abdominal pain
CPT/HCPCS: 36415; 80053; 81003; 81015; 83605; 85025; 86140; 87040; 87086; 96361; 96374; 96375; 99283; J1200; J1885; J2765

== ENCOUNTER 2019-06-01 06:43 | Day surgery (SDC) | payer BC ==
--- NOTE | 2019-05-22 08:34 | HP ---
CC: Dr. Karen Gamez * HISTORY AND PHYSICAL: DATE OF PLANNED ADMISSION AND SURGERY: 06/01/19 HISTORY OF PRESENT ILLNESS: Mrs. Horotn is a 28-year-old white female who is admitted with a left renal calculus, status post placement left ureteral stent for shockwave lithotripsy of left renal calculus and possible cystoscopy and removal of the left ureteral stent. Mrs. Horton is a known stone former and in September 2015 underwent a right ureteroscopy and laser lithotripsy of a right renal calculus. In November 2017 , she also required a left ureteroscopy and laser lithotripsy with good results. The patient presented to the emergency room on 05/06/19, with left renal colic associated with symptoms of pyelonephritis. Noncontrast CT of the abdomen and pelvis showed an 8 mm calculus at the left uretero-pelvic junction associated with hydronephrosis. Following IV antibiotics, she had urgent placement of left ureteral stent. She did very well afterwards, did not have any symptoms of sepsis and was discharged home on antibiotics. She did very well postoperatively with complete resolution of her symptoms. The patient had evaluation of her kidneys with a KUB and renal ultrasound. They showed that the left ureteral calculus to have migrated into the lower pole calyx, and measuring 8 mm in size. The left ureteral stent in good position. Urine culture was negative. The patient now is admitted for definitive treatment of the stone with shockwave lithotripsy of the left renal calculus and if there is good fragmentation of the stone for cystoscopy and removal of the left ureteral stent. PAST MEDICAL HISTORY AND SYSTEM REVIEW: The patient is healthy. She has history of depression, anxiety and obesity and recurrent nephrolithiasis. MEDICATIONS: She is maintained on citalopram 10 mg daily and on vitamin D. She just finished the course of ciprofloxacin for her recent pyelonephritis. ALLERGIES: She denies any allergies to medications. SOCIAL HISTORY: She is a nonsmoker. She denies any recreational drug use. PHYSICAL EXAMINATION GENERAL: Pleasant, moderately obese white female who looks otherwise healthy. VITAL SIGNS: Blood pressure 120/80, pulse of 70. LUNGS: Clear. HEART: Regular and rhythmic. No murmurs. ABDOMEN: Soft, no masses, no tenderness and no CVA tenderness. IMPRESSION: An 8 mm calculus in the lower pole calyx of the left kidney. Status post placement of left ureteral stent. PLAN: Plan is for shockwave lithotripsy of the left renal calculus and if good fragmentation of the stone is achieved for cystoscopy and removal of the left ureteral stent. I discussed the above plans in detail with the patient. Some of the potential complications including gross hematuria, renal hematoma, postoperative renal colic were all discussed. All her questions were answered. [id number]/[facility] #: [id number] WENDI
[~2019-06-01 06:43] MED LIST: Buffered Lidocaine 1% SYRIN* 1 ML/SYRINGE INTRADERM ONE; Famotidine IV* 10 MG/ML 2 ML (20 mg) IV ONE; Lactated Ringers 1000 ML Bag* 1,000 ML IV SCH
[2019-06-01] MEDS ORDERED: cefTRIAXone(*) 1 GM ADVAN/BAG ONE (07:35)
[2019-06-01] MEDS ORDERED: Famotidine IV* 10 MG/ML 2 ML (20 mg) ONE (07:36)
[2019-06-01] MEDS ORDERED: Ondansetron INJ* 2 MG/ML VIAL ONE (08:23)
[2019-06-01] MEDS ORDERED: Lidocaine 2% PF * 5 ML VIAL ONE (08:23)
[2019-06-01] MEDS ORDERED: Propofol* 10 MG/ML 20 ML BTL ONE (08:23)
[2019-06-01] MEDS ORDERED: Dexamethasone IV* 4 MG/ML 1 ML (4 MG) ONE (08:23)
[2019-06-01] MEDS ORDERED: fentaNYL* 50 MCG/ML 2 ML VIAL (100 MCG VIAL) ONE ×2 (08:23→10:08)
[2019-06-01] MEDS ORDERED: Midazolam* 1 MG/ML 5 ML VIAL (5 MG) ONE (08:23)
[2019-06-01] MEDS ORDERED: Iohexol 180 (CONTRAST) 10 ML SDV IV ONE (09:47)
[2019-06-01] MEDS ORDERED: fentaNYL* 50 MCG/ML 2 ML VIAL (100 MCG VIAL) IV PRN (10:08)
[2019-06-01] MEDS ORDERED: Naloxone* 0.4 MG/ML 1 ML VIAL IV PRN (10:08)
[2019-06-01] MEDS ORDERED: DiMENhydriNATE IV* 50 MG/ML VIAL IV PUSH PRN (10:10)
[2019-06-01 11:38] VITALS: BP 129/92
--- NOTE | 2019-06-01 13:10 | OP ---
CC: Dr. Karen Gamez * DATE OF OPERATION: 06/01/19 - [facility] DATE OF : 88 SURGEON: Jose Baugh MD ANESTHESIOLOGIST: Dr. Micky Herrera. ANESTHESIA: General. PRE-OP DIAGNOSES: 1. Proximal left ureteral calculus. 2. Status post placement of left ureteral stent. POST-OP DIAGNOSES: 1. Proximal left ureteral calculus. 2. Status post placement of left ureteral stent. OPERATIVE PROCEDURE: 1. Cystoscopy. 2. Left ureteroscopy and extraction of proximal left ureteral calculus. 3. Left retrograde pyelography and left ureteral stent exchange (6-Turkish). INDICATIONS FOR PROCEDURE: Ms. oHrton is a 28-year-old white female who presented about 4 weeks ago with an 8 mm obstructing calculus in the proximal left ureter associated with symptoms of urinary tract infection. She had urgent placement of left ureteral stent and responded well to antibiotics treatment. Postoperative KUB showed the left ureteral stent in good position and the calculus to have migrated in the lower pole calyx of the left kidney. The patient was scheduled to undergo shockwave lithotripsy and stent removal. Preoperative KUB done on her admission day showed the left ureteral stent in good position and the stone to have migrated back into the proximal left ureter just distal to the ureteropelvic junction. With that finding, the patient is taken to the operating room for left ureteroscopy and possible shockwave lithotripsy if the stone migrates back into her kidney. PATHOLOGY: At cystoscopy, the bladder mucosa looked normal. There was distal limb of the stent coming from the left orifice. There was the expected edema of the bladder mucosa adjacent to the stent. On fluoroscopy, the stent was in good position and the calculus was again noted in the proximal ureter. Upon left ureteroscopy, the ureter was nicely dilated from the presence of the stent. A pale grayish calculus was noted in the proximal left ureter just distal to the ureteropelvic junction. The calculus had the gross appearance of a calcium phosphate stone. The stone was rather friable, and when engaged with the basket, it broke into several fragments. There was no difficulty extracting the larger fragments from the ureter. DESCRIPTION OF PROCEDURE: After successful general anesthesia, the patient was placed in the lithotomy position and was prepped and draped for a cystoscopy. Cystoscopy was performed. The bladder was carefully inspected and the above findings were noted. The left ureteral stent was then removed. Guidewire was placed and positioned in the left renal pelvis. A size 6.5 semi-rigid tapered ureteroscope was then introduced inside the bladder. A flexible tip basket was introduced into the port of the ureteroscope and the flexible tip of the basket was introduced inside the left ureter along the side of the guidewire. That allowed the atraumatic introduction of the ureteroscope inside the left ureter which was nicely dilated. The scope was introduced without difficulty all the way into the proximal ureter where the calculus was identified. The basket was then deployed and the stone was engaged. Upon closing the basket, the stone was broken into several fragments. The larger fragments migrated back into the renal pelvis and they was engaged under direct vision inside the basket and the stone fragments were then gently extracted without any difficulty and without any trauma to the ureteral wall. Retrograde pyelography was then performed demonstrating no extravasation. A size 6-Turkish stent was then placed with the proximal end coiling in renal pelvis and the distal end coiling inside the bladder. There was good drainage of contrast from the kidney and no extravasation. The larger stone fragment was sent for stone analysis. The patient tolerated the procedure well and left the operating room in good condition. The plan is to see the patient in the office in another week and the stent will be removed. [id number] #: [id number]
== END 2019-06-01 11:30 | disposition home or self-care (01) ==
LOC: OR 06:43
PROVIDERS: ATTEND Urology
DX: N20.1 Calculus of ureter (principal); Z87.440 Personal history of urinary (tract) infections; F41.8 Other specified anxiety disorders; K76.0 Fatty (change of) liver, not elsewhere classified; M54.30 Sciatica, unspecified side
CPT/HCPCS: 74018; 81025; 82365; 88300; C1876; J0696; J1100; J2250; J2405; J2704; J3010

== ENCOUNTER 2024-02-26 06:37 | Observation (INO) ==
[2024-02-26] MEDS: HYDROmorphone 1 MG/1 ML SYRINGE IV SLOW PU ONE (07:49)
[2024-02-26] MEDS: Acetaminophen IV 1 GM/100ML 1,000 MG/100 ML BAG IV ONE (07:49)
[2024-02-26] MEDS: Ondansetron 4 mg VIAL 2 MG/ML 2 ml VIAL IV ONE (07:49)
[2024-02-26] MEDS: Lactated Ringers 1000 ml BAG 1,000 ML IV ONE ×2 (07:51→09:38)
[2024-02-26 08:09] LABS: ABS Lymphocytes 0.9 10^3/uL (1.0-4.8); ABS Monocytes 0.4 10^3/uL (0.0-0.9); ABS Neutrophils 7.9 10^3/uL (1.5-7.6); Eosinophil % 0.3 %; Hematocrit 36.2 % (35-45); Hemoglobin 12.5 g/dL (11.5-14.3); Lymphocyte % 9.3 %; Mean Corpuscular Hemoglobin 31.9 pg (27-33); Mean Corpuscular Hgb Conc 34.6 g/dL (31-36); Mean Platelet Volume 8.9 fL (7.5-11.2); Platelet Count 221 10^3/uL (150-450); Red Blood Count 3.93 10^6/uL (3.63-4.92); Red Cell Distribution Width 13.8 % (12-17); White Blood Count 9.2 10^3/uL (3.8-11.8)
[2024-02-26 08:18] LABS: INR 1.12 (0.83-1.13)
[2024-02-26 08:51] LABS: Albumin/Globulin Ratio 1.4 (1-3); Calcium 9.3 mg/dL (8.6-10.3); Creatinine, Serum 0.57 mg/dL (0.51-0.95); Globulin 2.9 g/dL (2-4); Magnesium 1.7 mg/dL (1.9-2.7); Potassium 4.1 mmol/L (3.5-5.0); Total Bilirubin 0.5 mg/dL (0.2-1.0); Total Protein 6.9 g/dL (6.4-8.9); eGFR CKD-EPI 122.2 (>60)
[2024-02-26 10:13] LABS: Urine Appearance Clear; Urine Bilirubin Negative (Negative); Urine Blood 2+ (Negative); Urine Color Colorless; Urine Glucose Negative (Negative); Urine Ketones Negative (Negative); Urine Nitrite Negative (Negative); Urine Protein Negative (Negative); Urine Specific Gravity 1.011 (1.002-1.030); Urine Urobilinogen Negative (Negative)
[2024-02-26 10:16] LABS: Urine Bacteria Absent /HPF (Absent); Urine Red Blood Cell 3+(>10/hpf) /HPF (0-Trace); Urine Squamous Epithelial Cell Present /HPF (Absent); Urine White Blood Cell Trace(0-5/hpf) /HPF (0-Trace)
[2024-02-26] MEDS: HYDROmorphone 0.5 MG/0.5 ML SYRINGE IV ONE ×2 (10:19→12:38)
[2024-02-26] MEDS ORDERED: Ondansetron 4 mg VIAL 2 MG/ML 2 ml VIAL IV PRN (15:01)
[2024-02-26] MEDS: Morphine 2 MG/ML SYRINGE IV PRN (15:43)
[2024-02-26] MEDS: Lactated Ringers 1000 ml BAG 1,000 ML IV SCH (15:43)
[2024-02-26] MEDS: cefTRIAXone 1 gm/50 mL D5W 1 GM/50 ML BAG IV SCH (17:21)
[2024-02-26] MEDS: HYDROmorphone 0.5 MG/0.5 ML SYRINGE IV SLOW PU PRN ×2 (18:39→21:40)
[2024-02-27 06:45] LABS: Hematocrit 31.1 % (35-45); Hemoglobin 10.6 g/dL (11.5-14.3); Mean Corpuscular Hemoglobin 31.8 pg (27-33); Mean Corpuscular Hgb Conc 34.2 g/dL (31-36); Mean Corpuscular Volume 93.1 fL (80-97); Platelet Count 200 10^3/uL (150-450); Red Blood Count 3.34 10^6/uL (3.63-4.92); Red Cell Distribution Width 14.3 % (12-17); White Blood Count 7.6 10^3/uL (3.8-11.8)
[2024-02-27 06:46] LABS: ABS Eosinophils 0.1 10^3/uL (0.0-0.5); ABS Lymphocytes 1.5 10^3/uL (1.0-4.8); ABS Monocytes 0.5 10^3/uL (0.0-0.9); ABS Neutrophils 5.4 10^3/uL (1.5-7.6); ABS Nucleated RBC 0.01 10^3/ul; Eosinophil % 1.6 %; Lymphocyte % 20.5 %; Nucleated Red Blood Cells % 0.1 %/100WBC (0.0-0.8)
[2024-02-27 06:51] LABS: Calcium 8.7 mg/dL (8.6-10.3); Creatinine, Serum 0.41 mg/dL (0.51-0.95); Magnesium 1.6 mg/dL (1.9-2.7); eGFR CKD-EPI 132.3 (>60)
[2024-02-27] MEDS: Magnesium Sulfate 2 gm BAG 2 GM/50 ML BAG IVPB ONE (08:36)
[2024-02-27 10:06] VITALS: BP 127/69
[2024-02-27] MEDS: Magnesium Sulfate IV 1GM/100ML 1 GM/100 ML BAG IV ONE (10:29)
== END 2024-02-27 12:20 | disposition home or self-care (01) ==
LOC: ED 06:37 → EDHOLD 06:37 → SSU 08:00
PROVIDERS: ADMIT Student in an Organized Health Care Education/Training Program; ATTEND Student in an Organized Health Care Education/Training Program

== ENCOUNTER 2024-08-24 04:59 | Inpatient (IN) ==
[2024-08-24] MEDS: Lactated Ringers 1000 ml BAG 1,000 ML IV ONE (05:34)
[2024-08-24 05:58] LABS: ABS Eosinophils 0.2 10^3/uL (0.0-0.5); ABS Lymphocytes 1.1 10^3/uL (1.0-4.8); ABS Monocytes 0.6 10^3/uL (0.0-0.9); ABS Neutrophils 5.6 10^3/uL (1.5-7.6); Eosinophil % 2.1 %; Hematocrit 31.2 % (35-45); Hemoglobin 10.5 g/dL (11.5-14.3); Lymphocyte % 15.1 %; Mean Corpuscular Hgb Conc 33.5 g/dL (31-36); Mean Corpuscular Volume 92.3 fL (80-97); Platelet Count 204 10^3/uL (150-450); Red Blood Count 3.38 10^6/uL (3.63-4.92); Red Cell Distribution Width 15.2 % (12-17); White Blood Count 7.5 10^3/uL (3.8-11.8)
[2024-08-24] MEDS: Buffered Lidocaine 1% SYRIN 1 ml INTRADERM ONE (07:00)
[2024-08-24] MEDS: Sodium Citrate/Citric Acid LIQ 15 ML UDC PO ONE (07:07)
[2024-08-24] MEDS: ceFOXitin 2 GM IVPREMIX 2 GM/50 ML BAG IVPB ONE (07:07)
[2024-08-24] MEDS ORDERED: Sodium Citrate/Citric Acid LIQ 15 ML UDC ONE (07:11)
[2024-08-24] MEDS ORDERED: fentaNYL 100 mcg/2 ml 50 MCG/ML VIAL ONE (07:11)
[2024-08-24] MEDS ORDERED: Morphine PF AMP (0.5MG/ML) 5 MG/10 ML AMP ONE (07:11)
[2024-08-24] MEDS ORDERED: Phenylephrine 40 mcg/mL 10mL (400mcg) SYRINGE ONE (07:16)
[2024-08-24] MEDS: Lactated Ringers 1000 ml BAG 1,000 ML IV SCH (07:22)
[2024-08-24] MEDS ORDERED: Lidocaine 2% PF 10 ML AMP (OR) ONE (08:07)
[2024-08-24] MEDS ORDERED: Bupivacaine-MPF SPINAL 7.5 MG/ML - 2ML AMP ONE (08:07)
[2024-08-24] MEDS ORDERED: Oxytocin 10 UNITS/ML 1 ML VIAL ONE (08:51)
[2024-08-24] MEDS ORDERED: Metoclopramide 5 MG/ML VIAL (10 mg) IV PRN (08:54)
[2024-08-24] MEDS ORDERED: Acetaminophen IV 1 GM/100ML 1,000 MG/100 ML BAG IV PRN (08:54)
[2024-08-24] MEDS ORDERED: Naloxone 0.4 mg VIAL 0.4 mg/ml 1 ml VIAL IV PUSH PRN (08:54)
[2024-08-24] MEDS ORDERED: Ondansetron 4 mg VIAL 2 MG/ML 2 ml VIAL IV PRN (08:54)
[2024-08-24] MEDS: Oxytocin in LR 20,000 MILLI.UNIT/1,000 ML BAG IV SCH (09:00)
[2024-08-24] MEDS ORDERED: Acetaminophen IV 1 GM/100ML 1,000 MG/100 ML BAG IV ONE (09:07)
[2024-08-24 09:21] LABS: Urine Appearance Clear; Urine Bilirubin Negative (Negative); Urine Blood Negative (Negative); Urine Color Light-Yellow; Urine Glucose Negative (Negative); Urine Ketones Trace (Negative); Urine Nitrite Negative (Negative); Urine Protein Negative (Negative); Urine Urobilinogen Negative (Negative); Urine pH 6.5 (5.0-8.0)
[2024-08-24 09:43] LABS: Urine Benzodiazepine Screen None Detected (None Detect); Urine Cannabinoids Screen None Detected (None Detect); Urine Opiates Screen None Detected (None Detect)
[2024-08-24] MEDS ORDERED: Dibucaine 1% OINT 28.35 GM TUBE PR PRN (09:48)
[2024-08-24] MEDS ORDERED: Glycerin ADULT 2.4 gm SUPP PR PRN (09:48)
[2024-08-24] MEDS ORDERED: Witch Hazel PAD JAR TOPICAL PRN (09:48)
[2024-08-24] MEDS ORDERED: Lactated Ringers 1000 ml BAG 1,000 ML IV SCH (10:00)
[2024-08-25 08:05] LABS: ABS Eosinophils 0.1 10^3/uL (0.0-0.5); ABS Lymphocytes 1.2 10^3/uL (1.0-4.8); ABS Monocytes 0.7 10^3/uL (0.0-0.9); ABS Neutrophils 7.8 10^3/uL (1.5-7.6); Hematocrit 30.1 % (35-45); Mean Corpuscular Hemoglobin 31.2 pg (27-33); Mean Corpuscular Hgb Conc 33.3 g/dL (31-36); Mean Corpuscular Volume 93.6 fL (80-97); Mean Platelet Volume 9.2 fL (7.5-11.2); Platelet Count 186 10^3/uL (150-450); Red Blood Count 3.22 10^6/uL (3.63-4.92); Red Cell Distribution Width 15.3 % (12-17); White Blood Count 9.8 10^3/uL (3.8-11.8)
[2024-08-25] MEDS: Measles, Mumps,Rubella VACC 0.5 ML/VIAL SUBCUT ONE (21:42)
[2024-08-27 09:38] VITALS: BP 127/67
== END 2024-08-27 15:40 | disposition home or self-care (01) | DRG 540 ==
LOC: MCHOB 04:59
PROVIDERS: ADMIT Obstetrics & Gynecology; ATTEND Obstetrics & Gynecology